=== PATIENT | female | born 1960 | race American Indian/Alaskan Native ===

== ENCOUNTER 2016-12-30 16:21 | Inpatient (IN) | payer OTHER ==
[2016-12-30] MEDS ORDERED: Sodium Chloride 0.9% 1,000 ML IV ONE ×3 (16:42→21:26)
[2016-12-30] MEDS ORDERED: Piperacillin/Tazobact 3.375 gm 100 ML IV STA (16:44)
[2016-12-30 16:59] LABS: BASO # 0.1 K/uL (0.0-0.2); BASO % 0.5 % (0.0-2.0); EOS % 0.1 % (0.0-4.0); HEMATOCRIT 37.3 % (34.0-47.0); LYMPH # 0.9 K/uL (1.0-4.3); LYMPH % 5.7 % (20.0-40.0); MEAN CELL VOLUME 74.5 fL (81.0-99.0); MEAN CORPUSCULAR HEMOGLOBIN 23.1 pg (27.0-31.0); MEAN CORPUSCULAR HGB CONC 31.1 g/dL (33.0-37.0); MEAN PLATELET VOLUME 8.6 fL (7.2-11.7); MONO # 0.7 K/uL (0.0-0.8); MONO % 4.5 % (0.0-10.0); NRBC % 0.7 % (0.0-2.0); PLATELET COUNT 338 K/uL (130-400); RED CELL DISTRIBUTION WIDTH 21.4 % (11.5-14.5); WHITE BLOOD COUNT 16.1 K/uL (4.8-10.8)
[2016-12-30 17:03] LABS: VENOUS BLOOD GAS BASE EXCESS -5.8 mmol/L (0.0-2.0); VENOUS BLOOD GAS PCO2 37 mmHg (40-60); VENOUS BLOOD PH 7.33 (7.32-7.43)
[2016-12-30 17:13] LABS: ALB/GLOB RATIO 0.9 (1.0-2.1); BILIRUBIN,TOTAL 2.9 mg/dL (0.2-1.3); TOTAL PROTEIN 6.2 g/dL (6.3-8.3)
[2016-12-30 17:14] LABS: CALCIUM 7.8 mg/dl (8.6-10.4)
[2016-12-30 17:26] LABS: TROPONIN I 0.086 ng/mL (0.00-0.120)
[2016-12-30] MEDS ORDERED: Piperacillin/Tazobact 3.375 gm 100 ML IVPB ONE (17:27)
[2016-12-30] MEDS ORDERED: Calcium Gluconate 4.65 MEQ in Dextrose 5% In Water 100 ML IV STA (17:33)
[2016-12-30] MEDS ORDERED: Sod Polystyrene Sulf 15 gm/60 ml Oral Susp PO ONE (17:33)
--- NOTE | 2016-12-30 17:33 | CP.PCM.CON ---
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 Patrick Patient is a 56 year old female, with PMHx of , who presents to ED with. PMHx PSHx SHx FHx: Allergies: Past Patient History - Past Social History Smoking Status: Unknown If Ever Smoked - CARDIAC Hx Angina: Yes Hx Hypertension: Yes - PULMONARY Hx Chronic Obstructive Pulmonary Disease (COPD): Yes Hx Sleep Apnea: Yes - NEUROLOGICAL Hx Parkinson's Disease: Yes - HEENT Hx Glaucoma: Yes - ENDOCRINE/METABOLIC Hx Diabetes Mellitus Type 2: Yes - PSYCHIATRIC Hx Anxiety: Yes Hx Substance Use: No - SURGICAL HISTORY Hx Coronary Artery Bypass Graft: Yes Meds Allergies/Adverse Reactions: Allergies Allergy/AdvReac Type Severity Reaction Status Date / Time Sulfa (Sulfonamide Allergy Verified 12/30/16 16:38 Antibiotics) - Medications Medications: Current Medications Sodium Chloride (Sodium Chloride 0.9%) 1,000 mls @ 1,000 mls/hr IV .Q1H ONE Stop: 12/30/16 17:41 Last Admin: 12/30/16 16:30 Dose: 1,000 mls/hr Vancomycin HCl (Vancomycin 1gm In Normal Saline Addvantage) 250 mls @ 166.667 mls/hr IV STAT GLADIS Norepinephrine Bitartrate 4 mg (/ Sodium Chloride) 254 mls @ 19.05 mls/hr IV .[id number] PRN; Protocol; 5 MCG/MIN PRN Reason: TITRATE PER MD ORDER Last Admin: 12/30/16 17:06 Dose: 19.05 mls/hr Fentanyl Citrate 2,500 mcg/ (Sodium Chloride) 250 mls @ 113.39 mls/hr IV .Q2H13M GLADIS; 10 MCG/KG/HR PRN Reason: Protocol Results - Vital Signs Recent Vital Signs: Last Vital Signs Temp 97.4 F L 12/30/16 17:01 Pulse 63 12/30/16 16:46 Resp 22 12/30/16 16:46 BP 69/43 L 12/30/16 16:46 Pulse Ox 100 12/30/16 16:46 - Labs Result Diagrams: 12/30/16 16:56 12/30/16 16:56 Assessment & Plan - Assessment and Plan (Free Text) Plan: Neuro: Pt intubated Endo: CV: Hyperkalemia: 5.7 on admission - Calcium Gluconate IV, D50 one amp, IV insulin given in ED - Kayexalate given once Hypotension - NS 1 Liter Bolus - NE 5 mcg/min titration BNP: 98660 Pulm: ABG: pH:7.33 , PO2: 67 , PCO2: 37 , HCO3: 20 PCXR (12/30/16): GI: Tbili 2.9 Elevated AST: 94 - ALT/Alk phos WNL /Renal: Urine output: BUN/CR: 98/ Monitor Hem/Onc: Microcytic Anemia - MCV 74.5 ID: CODE SEPSIS Criteria: WBC 16.1, Tachypneic (28) - left shift - Lactate 9 - Zosyn 3.375 gm IV, Vancomycin 1gm IV once in ED Prophylaxis: DVT: VTE: GI:
[2016-12-30] MEDS ORDERED: (Novolin R) Insulin Human Regular 100 units/ml vial IV STA (17:34)
[2016-12-30] MEDS ORDERED: Dextrose 50% SYRINGE Inj (50 ml) IV STA (17:34)
[2016-12-30] MEDS ORDERED: Sod Polystyrene Sulf 15 gm/60 ml Oral Susp ONE (17:43)
[2016-12-30] MEDS ORDERED: Dextrose 50% SYRINGE Inj (50 ml) ONE (17:44)
[2016-12-30] MEDS ORDERED: Sodium Bicarbonate (8.4%) 50 Meq Syringe ONE ×3 (17:44→20:11)
[2016-12-30] MEDS ORDERED: (Novolin R) Insulin Human Regular 100 units/ml vial ONE (17:44)
[2016-12-30] MEDS ORDERED: Calcium Gluconate 4.65 mEq/10 ml Inj ONE (17:44)
[2016-12-30 18:39] LABS: NEUTROPHIL 88 % (50-75); NUCLEATED RED BLOOD CELL 1 % (0-0); REACTIVE LYMPHOCYTES 1 % (0-0); TOTAL CELLS COUNTED 100
[2016-12-30 18:40] LABS: LARGE PLATELETS PRESENT; SMUDGE CELLS PRESENT
[2016-12-30] MEDS ORDERED: Etomidate 20 mg/10ml Inj IV ONE ×2 (18:52→19:40)
[2016-12-30] MEDS ORDERED: Succinylcholine Chloride 20 mg/ml Syr (5 ml) IV STA (19:06)
--- NOTE | 2016-12-30 19:14 | C.PDOC ---
History Of Present Illness Patient is a 56 year old female brought in from her longterm via EMS after being found to have a decreased mental status and hypoglycemia. Patient was treated with glucagon without improvement, D50 given with improvement to hypoglycemia but no improvement to mental status. No other problems seen at this moment. Time Seen by Provider: 12/30/16 16:41 Chief Complaint (Nursing): Altered Mental Status History Per: EMS, Other ([facility]) History/Exam Limitations: Clinical Condition Onset/Duration Of Symptoms: Hrs Onset Of Symptoms: Cannot Confirm Onset Current Symptoms Are (Timing): Still Present Usual Baseline: Unknown Additional History Per: EMS, [facility] Past Medical History Reviewed: Historical Data, Nursing Documentation, Vital Signs Vital Signs: Last Vital Signs Temp 97.4 F L 12/30/16 17:01 Pulse 65 12/30/16 22:25 Resp 16 12/30/16 22:25 BP 96/61 L 12/30/16 22:25 Pulse Ox 100 12/30/16 22:25 - Medical History PMH: Anxiety, COPD, Deep Vein Thrombosis, HTN, Hyperlipidemia, Parkinson's Disease, Sleep Apnea Surgical History: CABG - [facility] Procedures CONTRAST AORTOGRAM (12/26/11) CONTRAST ARTERIOGRAM-LEG (12/26/11) Family History: States: Unknown Family Hx - Social History Hx Alcohol Use: No Hx Substance Use: No Review Of Systems Review Of Systems: ROS cannot be obtained secondary to pt's inabilty to answer questions. (Altered mental status) Physical Exam - Physical Exam Appears: Non-toxic, Other (Lethargic) Skin: Normal Color, Warm, Dry Head: Atraumatic, Normacephalic Eye(s): bilateral: Other (Reactive) Oral Mucosa: Moist Chest: Other (Large midsternotomy scar) Cardiovascular: Rhythm Regular, JVD Respiratory: Rales (Bilateral) Gastrointestinal/Abdominal: Soft, Other (Globus abdomen) Rectal: Other (Left gluteal wound) Extremity: Pedal Edema (Bilateral), Other (Bilateral non-healing wound) Neurological/Psych: Other (Aroused by pain) Additional Physical Exam Comments: Wound vac in place ED Course And Treatment - Laboratory Results Result Diagrams: 12/30/16 16:56 12/30/16 19:44 Interpretation Of ECG: Flattened t waves laterally, inverted at v1/v2. Widen QRS. O2 Sat by Pulse Oximetry: 100 (Room air) Pulse Ox Interpretation: Normal - Radiology CXR: Interpreted by Me, Viewed By Me CXR Interpretation: Yes: Cardiomegaly, Other (CHF) Progress Note: Lactate at 9. Potassium at 7.0. Discussed with Dr. Brannon at 16: 45, says could be septic from leg wound. Spoke to daughter to clarify gravity of situation. Discussed with Dr. Patrick at 17:00 to make aware of patient, spoke to him again at 18:00, came down to ER at that time. Failed attempt at right groin triple lumen catheter insertion due to large blackened venous back flow, abandoned on 2nd attempt. Intubated with 22 cm glide scope, good bilateral breath sounds. OG tube placed by myself, good return. 18 gauge left external jugular vein angiocatheter placed. Code septic called. Zosyn administered for sepsis. Gentle sedation with fentanyl drip to avoid hypotension. Aggressive fluids administered as per code, sepsis protocols. Critical Care Time - Critical Care Note Total Time (in mins): 90 Documented critical care: time excludes all time spent performing seperately billable procedures. Medical Decision Making Medical Decision Making: sepsis prob due to b/l chronic leg wounds, acute renal failure, hyperkalemia with EKG changes of flattened T^ and bradycardia, Disposition Doctor Will See Patient In The: Hospital Counseled Patient/Family Regarding: Studies Performed, Diagnosis - Disposition Disposition: HOSPITALIZED Disposition Time: 18:30 Condition: CRITICAL - Clinical Impression Clinical Impression: Sepsis, Acute kidney insufficiency, Congestive heart failure (CHF), Hyperkalemia - Scribe Statement The provider has reviewed the documentation as recorded by the [facility] All medical record entries made by the Kellyibhalima were at my direction and personally dictated by me. I have reviewed the chart and agree that the record accurately reflects my personal performance of the history, physical exam, medical decision making, and the department course for this patient. I have also personally directed, reviewed, and agree with the discharge instructions and disposition.
[2016-12-30] MEDS ORDERED: Succinylcholine Chloride 20 mg/ml Syr (5 ml) IV ONE (19:40)
[2016-12-30] MEDS ORDERED: Sodium Bicarbonate (8.4%) 50 Meq Syringe IVP ONE (19:47)
--- NOTE | 2016-12-30 19:59 | RAD ---
PROCEDURE: CHEST RADIOGRAPH, 1 VIEW HISTORY: Shortness of breath COMPARISON: None available. FINDINGS: LUNGS: Moderate to severe venous congestion with prominent consolidative changes in the mid to lower lung zones bilaterally most prominent at the left lung base. Small left pleural effusion. PLEURA: As above. CARDIOVASCULAR: Cardiomegaly. Status post median sternotomy and CABG. OSSEOUS STRUCTURES: Degenerative changes in the spine and shoulders. VISUALIZED UPPER ABDOMEN: Normal. OTHER FINDINGS: None. IMPRESSION: Moderate to severe venous congestion with prominent consolidative changes in the mid to lower lung zones bilaterally most prominent at the left lung base. Small left pleural effusion.
--- NOTE | 2016-12-30 20:19 | RAD ---
PROCEDURE: CHEST RADIOGRAPH, 1 VIEW HISTORY: s/p intubation COMPARISON: 12/30/2016 FINDINGS: LUNGS: Endotracheal tube extending into the mid thoracic trachea. NG tube extending into the stomach. Moderate to severe venous congestion. Additional linear consolidative markings in the mid to lower lung zones bilaterally. More consolidative opacity at the left lung base with small left pleural effusion. PLEURA: As above. CARDIOVASCULAR: Status post median sternotomy and CABG. Prior valve replacement. Lobulated calcific density at the lateral aspect of the left lower lung zone. OSSEOUS STRUCTURES: No significant abnormalities. VISUALIZED UPPER ABDOMEN: Normal. OTHER FINDINGS: None. IMPRESSION: Endotracheal tube extending into the mid thoracic trachea. NG tube extending into the stomach. Moderate to severe venous congestion. Additional linear consolidative markings in the mid to lower lung zones bilaterally. More consolidative opacity at the left lung base with small left pleural effusion. Status post median sternotomy and CABG. Prior valve replacement. Lobulated calcific density at the lateral aspect of the left lower lung zone.
[2016-12-30 21:15] LABS: ABG MECHANICAL RATE 14; ATERIAL BLOOD GAS PEEP 5; DRAW SITE RRA
[2016-12-30 21:28] LABS: POTASSIUM 4.6 mmol/L (3.6-5.2)
[2016-12-30 21:32] LABS: CALCIUM 7.2 mg/dl (8.6-10.4); MAGNESIUM 2.9 mg/dL (1.6-2.3); PHOSPHOROUS 8.6 mg/dL (2.5-4.5)
[2016-12-30] MEDS ORDERED: Vancomycin 750mg/D5W 150 ml 150 ML IV ONE (21:45)
[2016-12-30 21:54] LABS: INR 2.3
[2016-12-30 22:04] LABS: DRAW SITE VENOUS; VENOUS BLOOD GAS BASE EXCESS 3.9 mmol/L (0.0-2.0); VENOUS BLOOD GAS PCO2 42 mmHg (40-60); VENOUS BLOOD PH 7.44 (7.32-7.43)
[2016-12-30] MEDS ORDERED: Sodium Chloride 0.9% 1,000 ML IV SCH (22:15)
--- NOTE | 2016-12-30 22:20 | CP.PCM.CON ---
History of Present Illness - History of Present Illness History of Present Illness: History obtained from the family, but the story is very limited. This patient underwent CABAG at [facility] on 08/2017, graft vessels where obtained from both lower medial anterior extremities. As per the family after the sutures where removed the wound opened up since she was very swollen, but got debridement of both sites on 09/2016. I saw pictures that the family carries in their celphone and the wounds have been progressively worst, now the tendon and muscle are visible. She has wound vac dressing, but not connected to the machine as per family the dressings have been connected to the wound vac at the [place]. She has been getting swollen for the past 2 weeks and was placed on a lasix drip since the kidneys where hypoperfused. As per ER the patient was "hypoglycemic, bradycardic in the 50's, SBP 60'S and intubated since she was stuporous, ". Did not desaturated. Was started on pressors. I do not have previous laboratory exams. Initial labs show renal failure with K 6, HCO3 17, increased anion gap, low Na, low Cl, she has anasarca. Unable to auscultate heart of lungs due to body habitus. Minimal response, but does require some sedation. When kinney inserted only 10 mL of UO came out. sites of non functionin IV removed are oozing secondary to platelet disfunction due to renal failure, given DDAVP. Placed left IJ line under aseptic conditions and with aid of US with out any complications, tip placement confirmed by x-ray. PMH: CABAG 08/2016 MARKUS HTN COPD Parkinson's disease Allergic to sulfas FH: Not relevant for the case social: ros unable pe: bp 89/55 mmhg, hr 64, rr 21, O2 99% on RA, afebrile patient intubated and sedte obtunded, but able to move a little with stimuli unable to auscultate heart or lungs abdomen global, soft, unable to do deep palpation anasarca did not take the wound vac dressings since a/p: Septic shock: Pressors decreasing, bolusing 2 L of fluids, maintenance fluids. meropenem 500 mg X1 (adjusted for renal function), next dose daily and 1,750 mg of vancomycin, next dose in [address] 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 Call surgery in am to follow on wound vac and evaluate any need for further surgical intervention. Renal failure: unable to get urine sample, give fluids and see if we can obtain any output, so far acidosis and hyperkalemia controlled. Will call Dr. Paredes, does note need dialysis immediately, but very possible that will need. respiratory failure: x-ray looks very congested Updated family Past Patient History - Past Social History Smoking Status: Unknown If Ever Smoked - CARDIAC Hx Hypertension: Yes - PULMONARY Hx Chronic Obstructive Pulmonary Disease (COPD): Yes Hx Sleep Apnea: Yes - NEUROLOGICAL Hx Parkinson's Disease: Yes - HEENT Hx Glaucoma: Yes - ENDOCRINE/METABOLIC Hx Diabetes Mellitus Type 2: Yes - PSYCHIATRIC Hx Anxiety: Yes Hx Substance Use: No - SURGICAL HISTORY Hx Coronary Artery Bypass Graft: Yes Meds Allergies/Adverse Reactions: Allergies Allergy/AdvReac Type Severity Reaction Status Date / Time Sulfa (Sulfonamide Allergy Verified 12/30/16 16:38 Antibiotics) - Medications Medications: Current Medications Norepinephrine Bitartrate 4 mg (/ Sodium Chloride) 254 mls @ 19.05 mls/hr IV .[id number] PRN; Protocol; 5 MCG/MIN PRN Reason: TITRATE PER MD ORDER Last Admin: 12/30/16 18:25 Dose: 76.2 mls/hr Fentanyl Citrate 2,500 mcg/ (Sodium Chloride) 250 mls @ 113.39 mls/hr IV .Q2H13M GLADIS; 10 MCG/KG/HR PRN Reason: Protocol Last Admin: 12/30/16 18:06 Dose: 113.39 mls/hr Sodium Bicarbonate 150 meq/ (Dextrose) 1,000 mls @ 100 mls/hr IV .Q10H GLADIS Sodium Chloride (Sodium Chloride 0.9%) 1,000 mls @ 1,000 mls/hr IV .Q1H ONE Stop: 12/30/16 22:25 Sodium Chloride (Sodium Chloride 0.9%) 1,000 mls @ 1,000 mls/hr IV .Q1H ONE Stop: 12/30/16 22:25 Vancomycin HCl 1,750 mg/ (Sodium Chloride) 250 mls @ 166.6 mls/hr IVPB Q72H GLADIS Vancomycin HCl (Vancocin 750mg/D5w 150 Ml) 150 mls @ 133 mls/hr IV ONCE ONE Stop: 12/30/16 22:52 Imipenem/Cilastatin Sodium 500 (mg/ Sodium Chloride) 100 mls @ 100 mls/hr IVPB ONCE ONE Stop: 12/30/16 22:32 Sodium Chloride (Sodium Chloride 0.9%) 1,000 mls @ 100 mls/hr IV .Q10H GLADIS Pantoprazole Sodium (Protonix Inj) 40 mg IVP DAILY GLADIS Results - Vital Signs Recent Vital Signs: Last Vital Signs Temp 97.4 F L 12/30/16 17:01 Pulse 64 12/30/16 18:50 Resp 20 12/30/16 18:50 BP 100/59 L 12/30/16 18:50 Pulse Ox 100 12/30/16 19:42 - Labs Result Diagrams: 12/30/16 16:56 12/30/16 19:44 Labs: Laboratory Results - last 24 hr 12/30/16 12/30/16 12/30/16 19:44 21:04 21:12 PT INR APTT Puncture Site Rra pCO2 30 L pO2 295 H HCO3 26.9 ABG pH 7.52 H ABG Total CO2 25.4 ABG O2 Saturation 100.4 H ABG Base Excess 2.4 Stan Test Na ABG Potassium 4.2 VBG pH VBG pCO2 VBG HCO3 VBG O2 Sat (Calc) VBG Base Excess A-a O2 Difference 381.0 Respiratory Index 1.3 Glucose 99 Lactate 5.0 H* Mechanical Rate 14 FiO2 100.0 Tidal Volume 500 PEEP 5 Crit Value Called To Mariangel carias Crit Value Called By Mandi Crit Value Read Back Y Blood Gas Notified Time 2114 Sodium 132 134.0 Potassium 4.6 Chloride 89 L 99.0 Carbon Dioxide 25 Anion Gap 23 H BUN 98 H Creatinine 7.4 H* Est GFR ( Amer) 7 Est GFR (Non-Af Amer) 6 Random Glucose 94 Lactic Acid 4.9 H* Calcium 7.2 L Phosphorus 8.6 H Magnesium 2.9 H Arterial Blood Potassium 4.2 Blood Type Antibody Screen 12/30/16 12/30/16 12/30/16 21:15 21:16 22:01 PT 27.1 H INR 2.3 APTT 41 H Puncture Site Venous pCO2 pO2 26 L HCO3 ABG pH ABG Total CO2 ABG O2 Saturation ABG Base Excess Stan Test Na ABG Potassium VBG pH 7.44 H VBG pCO2 42 VBG HCO3 26.7 VBG O2 Sat (Calc) 47.1 VBG Base Excess 3.9 H A-a O2 Difference Respiratory Index Glucose Lactate Mechanical Rate FiO2 Tidal Volume PEEP Crit Value Called To Crit Value Called By Crit Value Read Back Blood Gas Notified Time Sodium Potassium Chloride Carbon Dioxide Anion Gap BUN Creatinine Est GFR ( Amer) Est GFR (Non-Af Amer) Random Glucose Lactic Acid Calcium Phosphorus Magnesium Arterial Blood Potassium Blood Type O POSITIVE Antibody Screen Negative
[2016-12-31 01:32] LABS: POTASSIUM 4.6 mmol/L (3.6-5.2)
[2016-12-31 01:36] LABS: CALCIUM 6.9 mg/dl (8.6-10.4)
[2016-12-31] MEDS ORDERED: Albumin Human 25% (12.5 gm/50 ml) IV ONE ×2 (02:25→03:24)
[2016-12-31 02:50] LABS: CHLORIDE 92 mmol/L (98-107); POTASSIUM 4.7 mmol/L (3.6-5.2); SODIUM 135 mmol/L (132-148)
[2016-12-31 02:53] LABS: CARBON DIOXIDE 21 mmol/L (22-30)
[2016-12-31 02:54] LABS: BLOOD UREA NITROGEN 92 mg/dL (7-17); CALCIUM 7.3 mg/dl (8.6-10.4); GLUCOSE,RANDOM 72 mg/dL (65-105)
[2016-12-31 03:01] LABS: GFR AFRICAN-AMERICAN 7
[2016-12-31 05:45] LABS: ABG MECHANICAL RATE 14; ARTERIAL BLOOD HGB O2 SAT 95.8 % (95.0-98.0); ATERIAL BLOOD GAS PEEP 5; DRAW SITE RB; HHB 1.4 % (0.0-5.0); METHEMOGLOBIN 0.8 % (0.0-3.0)
[2016-12-31] MEDS ORDERED: Dextrose 50% SYRINGE Inj (50 ml) ONE ×2 (06:38→15:29)
[2016-12-31] MEDS ORDERED: Dextrose 50% SYRINGE Inj (50 ml) IV STA ×3 (06:42→15:29)
[2016-12-31 06:45] LABS: BASO # 0.1 K/uL (0.0-0.2); BASO % 0.3 % (0.0-2.0); EOS % 0.1 % (0.0-4.0); HEMATOCRIT 34.6 % (34.0-47.0); LYMPH # 2.4 K/uL (1.0-4.3); LYMPH % 11.5 % (20.0-40.0); MEAN CELL VOLUME 75.1 fL (81.0-99.0); MEAN CORPUSCULAR HEMOGLOBIN 23.5 pg (27.0-31.0); MEAN CORPUSCULAR HGB CONC 31.3 g/dL (33.0-37.0); MEAN PLATELET VOLUME 8.5 fL (7.2-11.7); MONO # 1.4 K/uL (0.0-0.8); MONO % 6.6 % (0.0-10.0); RED CELL DISTRIBUTION WIDTH 21.5 % (11.5-14.5); WHITE BLOOD COUNT 20.8 K/uL (4.8-10.8)
[2016-12-31 06:47] LABS: PHOSPHOROUS 8.6 mg/dL (2.5-4.5)
[2016-12-31 06:48] LABS: CALCIUM 7.5 mg/dl (8.6-10.4); MAGNESIUM 2.9 mg/dL (1.6-2.3)
--- NOTE | 2016-12-31 08:17 | PCM.SEPTIC ---
Sepsis Progress Note - Reassessment Type Date of Evaluation: 12/31/16 Time of Evaluation: 08:15 Reassessment Type: Invasive reassessment - Non Invasive Reassessment Were the most recent vital sign reviewed: Yes Vital Sign (Latest): Temp Pulse Resp BP Pulse Ox 96 F L 67 22 100/66 96 12/31/16 05:00 12/31/16 07:27 12/31/16 07:27 12/31/16 07:27 12/31/16 06:00 Cardiovascular: Yes: Bradycardia Respiratory: Yes: Decreased Breath Sounds Capillary Refill: Delayed Pulses: Normal Radial, Normal Dorsalis Pedis, Normal Posterior Tibialis Skin: Normal Color, Dry, Diaphoretic - Invasive Reassessment (complete 2 of 4) Was a Central Venous Pressure Measurement obtained within 6 Hours after the presentation of septic shock: No Was a central venous oxygen measurement obtained within 6 hours after the presentation of septic shock: No Was a bedside cardiovascular ultrasound performed within 6 hours after the presentation of septic shock: No Passive Leg Raise Result: Negative Fluid Challenge performed: Yes
[2016-12-31] MEDS ORDERED: Dextrose 5%/0.9% NS 1,000 ML IV SCH (08:30)
--- NOTE | 2016-12-31 08:47 | CP.PCM.CON ---
History of Present Illness - History of Present Illness History of Present Illness: VASCULAR SURGERY CONSULT NOTE FOR DR. ROSALES Pt intubated, unable to give history and no family available at bedside for questioning. HPI taken from family by Dr. Auguts. Pt S&E. "History obtained from the family, but the story is very limited. This patient underwent CABAG at [facility] on 08/2017, graft vessels where obtained from both lower medial anterior extremities. As per the family after the sutures where removed the wound opened up since she was very swollen, but got debridement of both sites on 09/2016. I saw pictures that the family carries in their cellphone and the wounds have been progressively worst, now the tendon and muscle are visible. She has wound vac dressing, but not connected to the machine as per family the dressings have been connected to the wound vac at the MD. She has been getting swollen for the past 2 weeks and was placed on a lasix drip since the kidneys where hypoperfused. As per ER the patient was "hypoglycemic, bradycardic in the 50's, SBP 60'S and intubated since she was stuporous, ". Did not desaturate Was started on pressors. Initial labs show renal failure with K 6, HCO3 17, increased anion gap, low Na, low Cl, she has anasarca. Unable to auscultate heart of lungs due to body habitus. Minimal response, but does require some sedation. When kinney inserted only 10 mL of UO came out. sites of non functionin IV removed are oozing secondary to platelet disfunction due to renal failure, given DDAVP." Pick Pulling Machine Operator placed left IJ line and pt currently maxed out on vasopressin and levophed with systolic BP in 80s. Pt went to HD last night but could only tolerate 45 min due to hypotension. Current vent settings: FIO2 40%, PEEP5, RR 14, tidal vol 500 PMH: HTN, MARKUS, COPD, Parkinson's disease PSH: CABG 08/2016 Allergies: sulfas FH:Not relevant for the case social: unable to obtain ros unable to obtain Review of Systems - Review of Systems Systems not reviewed;Unavailable: Intubated Review of Systems: unable to obtain do to intubation Past Patient History - Past Medical History & Family History Past Medical History?: Yes - Past Social History Smoking Status: Unknown If Ever Smoked - CARDIAC Hx Hypertension: Yes - PULMONARY Hx Chronic Obstructive Pulmonary Disease (COPD): Yes Hx Sleep Apnea: Yes - NEUROLOGICAL Hx Parkinson's Disease: Yes - HEENT Hx Glaucoma: Yes - RENAL Hx Chronic Kidney Disease: No - ENDOCRINE/METABOLIC Hx Diabetes Mellitus Type 2: Yes - HEMATOLOGICAL/ONCOLOGICAL Hx Blood Disorders: Yes Hx Blood Transfusions: Yes - INTEGUMENTARY Hx Dermatological Problems: No - MUSCULOSKELETAL/RHEUMATOLOGICAL Hx Musculoskeletal Disorders: No - GASTROINTESTINAL Hx Gastrointestinal Disorders: No - GENITOURINARY/GYNECOLOGICAL Hx Genitourinary Disorders: No - PSYCHIATRIC Hx Anxiety: Yes Hx Substance Use: No - SURGICAL HISTORY Hx Coronary Artery Bypass Graft: Yes - ANESTHESIA Hx Anesthesia: Yes Hx Anesthesia Reactions: No Hx Malignant Hyperthermia: No Has any member of the family had a problem w/ anesthesia?: No Meds Allergies/Adverse Reactions: Allergies Allergy/AdvReac Type Severity Reaction Status Date / Time Sulfa (Sulfonamide Allergy Verified 12/30/16 16:38 Antibiotics) - Medications Medications: Current Medications Norepinephrine Bitartrate 4 mg (/ Sodium Chloride) 254 mls @ 19.05 mls/hr IV .[id number] PRN; Protocol; 5 MCG/MIN PRN Reason: TITRATE PER MD ORDER Last Admin: 12/31/16 07:27 Dose: 76.2 mls/hr Fentanyl Citrate 2,500 mcg/ (Sodium Chloride) 250 mls @ 113.39 mls/hr IV .Q2H13M GLADIS; 10 MCG/KG/HR PRN Reason: Protocol Last Admin: 12/31/16 07:09 Dose: 22.8 mls/hr Sodium Bicarbonate 150 meq/ (Dextrose) 1,000 mls @ 100 mls/hr IV .Q10H GLADIS Vancomycin HCl 1,750 mg/ (Sodium Chloride) 250 mls @ 166.6 mls/hr IVPB Q72H GLADIS Vasopressin 40 units/ Sodium (Chloride) 40 mls @ 2.4 mls/hr IV .[id number] GLADIS PRN Reason: 0.04 UNITS/MIN Last Admin: 12/31/16 08:42 Dose: 2.4 mls/hr Dextrose/Sodium Chloride (Dextrose 5%/0.9% Ns 1000 Ml) 1,000 mls @ 100 mls/hr IV .Q10H GLADIS Last Admin: 12/31/16 08:33 Dose: 100 mls/hr Pantoprazole Sodium (Protonix Inj) 40 mg IVP DAILY GLADIS Physical Exam - Constitutional Appears: Toxic, Unkempt Additional comments: obese - Head Exam Head Exam: ATRAUMATIC, NORMOCEPHALIC - ENT Exam ENT Exam: Mucous Membranes Moist, Normal Exam - Respiratory Exam Respiratory Exam: absent: Respiratory Distress Additional comments: on ventilator - Cardiovascular Exam Cardiovascular Exam: REGULAR RHYTHM. absent: Bradycardia, Tachycardia, JVD - GI/Abdominal Exam GI & Abdominal Exam: Soft. absent: Distended - Extremities Exam Extremities exam: Positive for: pedal edema Additional comments: 2+ pitting edema, wound vacs on bilateral medial extremities, not connected to suction. Additional lesion on medial Left knee. no palpable or doppler-able DPs or PTs pulses - Neurological Exam Additional comments: pt intubated on fentanyl. nonresponsive to verbal stimulus - Psychiatric Exam Additional comments: pt intubated on fentanyl - Skin Skin Exam: Dry Additional comments: feet cold to touch bilaterally Results - Vital Signs Recent Vital Signs: Last Vital Signs Temp 96 F L 12/31/16 05:00 Pulse 64 12/31/16 08:42 Resp 22 12/31/16 08:42 BP 87/61 L 12/31/16 08:42 Pulse Ox 98 12/31/16 08:42 - Labs Result Diagrams: 12/31/16 06:35 12/31/16 04:00 Labs: Laboratory Results - last 24 hr 12/30/16 12/30/16 12/30/16 19:44 21:04 21:12 WBC RBC Hgb Hct MCV MCH MCHC RDW Plt Count MPV Neut % (Auto) Lymph % (Auto) [place] % (Auto) Eos % (Auto) Baso % (Auto) Neut # Lymph # [place] # Eos # Baso # PT INR APTT Puncture Site Rra pCO2 30 L pO2 295 H HCO3 26.9 ABG pH 7.52 H ABG Total CO2 25.4 ABG O2 Saturation 100.4 H ABG Base Excess 2.4 ABG Hemoglobin ABG Carboxyhemoglobin POC ABG HHb (Measured) ABG Methemoglobin Stan Test Na ABG Potassium 4.2 VBG pH VBG pCO2 VBG HCO3 VBG O2 Sat (Calc) VBG Base Excess A-a O2 Difference 381.0 Respiratory Index 1.3 Hgb O2 Saturation Glucose 99 Lactate 5.0 H* Mechanical Rate 14 FiO2 100.0 Tidal Volume 500 PEEP 5 Crit Value Called To Mariangel carias Crit Value Called By Mandi Crit Value Read Back Y Blood Gas Notified Time 2114 Sodium 132 134.0 Potassium 4.6 Chloride 89 L 99.0 Carbon Dioxide 25 Anion Gap 23 H BUN 98 H Creatinine 7.4 H* Est GFR ( Amer) 7 Est GFR (Non-Af Amer) 6 POC Glucose (mg/dL) Random Glucose 94 Serum Osmolality Lactic Acid 4.9 H* Calcium 7.2 L Phosphorus 8.6 H Magnesium 2.9 H Arterial Blood Potassium 4.2 Hep Bs Antigen Hep Bs Antibody Hep B Core IgM Ab Hepatitis C Antibody Blood Type Antibody Screen 12/30/16 12/30/16 12/30/16 21:15 21:16 22:01 WBC RBC Hgb Hct MCV MCH MCHC RDW Plt Count MPV Neut % (Auto) Lymph % (Auto) [place] % (Auto) Eos % (Auto) Baso % (Auto) Neut # Lymph # [place] # Eos # Baso # PT 27.1 H INR 2.3 APTT 41 H Puncture Site Venous pCO2 pO2 26 L HCO3 ABG pH ABG Total CO2 ABG O2 Saturation ABG Base Excess ABG Hemoglobin ABG Carboxyhemoglobin POC ABG HHb (Measured) ABG Methemoglobin Stan Test Na ABG Potassium VBG pH 7.44 H VBG pCO2 42 VBG HCO3 26.7 VBG O2 Sat (Calc) 47.1 VBG Base Excess 3.9 H A-a O2 Difference Respiratory Index Hgb O2 Saturation Glucose Lactate Mechanical Rate FiO2 Tidal Volume PEEP Crit Value Called To Crit Value Called By Crit Value Read Back Blood Gas Notified Time Sodium Potassium Chloride Carbon Dioxide Anion Gap BUN Creatinine Est GFR ( Amer) Est GFR (Non-Af Amer) POC Glucose (mg/dL) Random Glucose Serum Osmolality Lactic Acid Calcium Phosphorus Magnesium Arterial Blood Potassium Hep Bs Antigen Hep Bs Antibody Hep B Core IgM Ab Hepatitis C Antibody Blood Type O POSITIVE Antibody Screen Negative 12/30/16 12/30/16 12/31/16 22:32 23:49 01:17 WBC RBC Hgb Hct MCV MCH MCHC RDW Plt Count MPV Neut % (Auto) Lymph % (Auto) [place] % (Auto) Eos % (Auto) Baso % (Auto) Neut # Lymph # [place] # Eos # Baso # PT INR APTT Puncture Site pCO2 pO2 HCO3 ABG pH ABG Total CO2 ABG O2 Saturation ABG Base Excess ABG Hemoglobin ABG Carboxyhemoglobin POC ABG HHb (Measured) ABG Methemoglobin Stan Test ABG Potassium VBG pH VBG pCO2 VBG HCO3 VBG O2 Sat (Calc) VBG Base Excess A-a O2 Difference Respiratory Index Hgb O2 Saturation Glucose Lactate Mechanical Rate FiO2 Tidal Volume PEEP Crit Value Called To Crit Value Called By Crit Value Read Back Blood Gas Notified Time Sodium 132 Potassium 4.6 Chloride 91 L Carbon Dioxide 22 Anion Gap 24 H BUN 92 H Creatinine 6.9 H Est GFR ( Amer) 7 Est GFR (Non-Af Amer) 6 POC Glucose (mg/dL) 126 H 111 H Random Glucose 81 Serum Osmolality Lactic Acid Calcium 6.9 L Phosphorus Magnesium Arterial Blood Potassium Hep Bs Antigen Hep Bs Antibody Hep B Core IgM Ab Hepatitis C Antibody Blood Type Antibody Screen 12/31/16 12/31/16 12/31/16 02:36 04:00 05:07 WBC RBC Hgb Hct MCV MCH MCHC RDW Plt Count MPV Neut % (Auto) Lymph % (Auto) [place] % (Auto) Eos % (Auto) Baso % (Auto) Neut # Lymph # [place] # Eos # Baso # PT INR APTT Puncture Site Rb pCO2 23 L pO2 95 HCO3 17.9 L ABG pH 7.40 ABG Total CO2 14.9 L ABG O2 Saturation 98.6 H ABG Base Excess -9.0 L ABG Hemoglobin 11.0 L ABG Carboxyhemoglobin 2.0 H POC ABG HHb (Measured) 1.4 ABG Methemoglobin 0.8 Stan Test Na ABG Potassium VBG pH VBG pCO2 VBG HCO3 VBG O2 Sat (Calc) VBG Base Excess A-a O2 Difference 161.0 Respiratory Index 1.7 Hgb O2 Saturation 95.8 Glucose Lactate Mechanical Rate 14 FiO2 40.0 Tidal Volume 500 PEEP 5 Crit Value Called To Crit Value Called By Crit Value Read Back Blood Gas Notified Time Sodium 135 135 Potassium 4.7 5.0 Chloride 92 L 92 L Carbon Dioxide 21 L 17 L Anion Gap 27 H 30 H BUN 92 H 79 H Creatinine 7.2 H 7.2 H Est GFR ( Amer) 7 7 Est GFR (Non-Af Amer) 6 6 POC Glucose (mg/dL) Random Glucose 72 26 L* D Serum Osmolality 312 H Lactic Acid Calcium 7.3 L 7.5 L Phosphorus 8.6 H Magnesium 2.9 H Arterial Blood Potassium Hep Bs Antigen Negative Hep Bs Antibody Negative Hep B Core IgM Ab Negative Hepatitis C Antibody Reactive H Blood Type Antibody Screen 12/31/16 12/31/16 12/31/16 06:35 06:42 07:12 WBC 20.8 H RBC 4.61 Hgb 10.8 L Hct 34.6 MCV 75.1 L MCH 23.5 L MCHC 31.3 L RDW 21.5 H Plt Count 277 MPV 8.5 Neut % (Auto) 81.5 H Lymph % (Auto) 11.5 L [place] % (Auto) 6.6 Eos % (Auto) 0.1 Baso % (Auto) 0.3 Neut # 16.9 H Lymph # 2.4 [place] # 1.4 H Eos # 0.0 Baso # 0.1 PT INR APTT Puncture Site pCO2 pO2 HCO3 ABG pH ABG Total CO2 ABG O2 Saturation ABG Base Excess ABG Hemoglobin ABG Carboxyhemoglobin POC ABG HHb (Measured) ABG Methemoglobin Stan Test ABG Potassium VBG pH VBG pCO2 VBG HCO3 VBG O2 Sat (Calc) VBG Base Excess A-a O2 Difference Respiratory Index Hgb O2 Saturation Glucose Lactate Mechanical Rate FiO2 Tidal Volume PEEP Crit Value Called To Crit Value Called By Crit Value Read Back Blood Gas Notified Time Sodium Potassium Chloride Carbon Dioxide Anion Gap BUN Creatinine Est GFR ( Amer) Est GFR (Non-Af Amer) POC Glucose (mg/dL) 22 L* 214 H 96 Random Glucose Serum Osmolality Lactic Acid Calcium Phosphorus Magnesium Arterial Blood Potassium Hep Bs Antigen Hep Bs Antibody Hep B Core IgM Ab Hepatitis C Antibody Blood Type Antibody Screen Assessment & Plan - Assessment and Plan (Free Text) Assessment: Assessment: 56F w/ PMH of HTN, MARKUS, PD, COPD s/p CABG with b/l lower extremity wounds with wound vac in place and non-dopplerable pulses Plan: - medical management per ICU team - Dr. Rosales will see this AM Jenna Betts PGY-2
--- NOTE | 2016-12-31 09:16 | RAD ---
HISTORY: line placement COMPARISON: 12/30/2016 FINDINGS: LUNGS: Endotracheal tube extending into the mid thoracic trachea. NG tube extending into the stomach. Left central venous catheter extending to the confluence of the right brachiocephalic and SVC junction. Moderate venous congestion. Prominent linear consolidative changes in the right midlung zone. Left basilar airspace opacity with small left pleural effusion. PLEURA: As above. CARDIOVASCULAR: Cardiomegaly. Status post median sternotomy and CABG. Valve replacement. OSSEOUS STRUCTURES: Degenerative changes in the spine and shoulders. VISUALIZED UPPER ABDOMEN: Normal. OTHER FINDINGS: None. IMPRESSION: Endotracheal tube extending into the mid thoracic trachea. NG tube extending into the stomach. Left central venous catheter extending to the confluence of the right brachiocephalic and SVC junction. Moderate venous congestion. Prominent linear consolidative changes in the right midlung zone. Left basilar airspace opacity with small left pleural effusion.
--- NOTE | 2016-12-31 09:19 | RAD ---
HISTORY: right ij hd cath insertion COMPARISON: 12/30/2016 FINDINGS: LUNGS: Interval insertion of a right jugular catheter tip extending to the cavoatrial junction. Other lines and tubes stable position. Persistent prominent linear consolidative changes in the right mid lung zone. Moderate venous congestion. Prominent left basilar airspace opacity with small to moderate left pleural effusion. Radiopaque density at the lateral aspect of the left midlung zone may represent surgical clip. PLEURA: As above. CARDIOVASCULAR: Cardiomegaly. Status post median sternotomy and CABG. Prior valve replacement. OSSEOUS STRUCTURES: No significant abnormalities. VISUALIZED UPPER ABDOMEN: Normal. OTHER FINDINGS: None. IMPRESSION: Interval insertion of a right jugular catheter tip extending to the cavoatrial junction. Other lines and tubes stable position. Persistent prominent linear consolidative changes in the right mid lung zone. Moderate venous congestion. Prominent left basilar airspace opacity with small to moderate left pleural effusion. Radiopaque density at the lateral aspect of the left midlung zone may represent surgical clip.
--- NOTE | 2016-12-31 10:55 | CP.PCM.CON ---
History of Present Illness - History of Present Illness History of Present Illness: History obtained from the family, but the story is very limited. This patient underwent CABAG at [facility] on 08/2017, graft vessels where obtained from both lower medial anterior extremities. As per the family after the sutures where removed the wound opened up since she was very swollen, but got debridement of both sites on 09/2016. I saw pictures that the family carries in their celphone and the wounds have been progressively worst, now the tendon and muscle are visible. She has wound vac dressing, but not connected to the machine as per family the dressings have been connected to the wound vac at the NM. She has been getting swollen for the past 2 weeks and was placed on a lasix drip since the kidneys where hypoperfused. As per ER the patient was "hypoglycemic, bradycardic in the 50's, SBP 60'S and intubated since she was stuporous, ". Did not desaturated. Was started on pressors. I do not have previous laboratory exams. Initial labs show renal failure with K 6, HCO3 17, increased anion gap, low Na, low Cl, she has anasarca. Unable to auscultate heart of lungs due to body habitus. Minimal response, but does require some sedation. When kinney inserted only 10 mL of UO came out. sites of non functionin IV removed are oozing secondary to platelet disfunction due to renal failure, given DDAVP. Placed left IJ line under aseptic conditions and with aid of US with out any complications, tip placement confirmed by x-ray. PMH: CABAG 08/2016 MARKUS HTN COPD Parkinson's disease PMH: HEP C+ COPD/MARKUS HTN PARKINSONS Presents to ER with code sepsis; given 2L fluids Due to pulmonary edema dialysis was attempted but was aborted due to hypotension Will try to arrange for slow dialysis -ie SLED to maintain hemodynamic stability. CONSULT DICTATED Past Patient History - Past Medical History & Family History Past Medical History?: Yes - Past Social History Smoking Status: Unknown If Ever Smoked - CARDIAC Hx Hypertension: Yes - PULMONARY Hx Chronic Obstructive Pulmonary Disease (COPD): Yes Hx Sleep Apnea: Yes - NEUROLOGICAL Hx Parkinson's Disease: Yes - HEENT Hx Glaucoma: Yes - RENAL Hx Chronic Kidney Disease: No - ENDOCRINE/METABOLIC Hx Diabetes Mellitus Type 2: Yes - HEMATOLOGICAL/ONCOLOGICAL Hx Blood Disorders: Yes Hx Blood Transfusions: Yes - INTEGUMENTARY Hx Dermatological Problems: No - MUSCULOSKELETAL/RHEUMATOLOGICAL Hx Musculoskeletal Disorders: No - GASTROINTESTINAL Hx Gastrointestinal Disorders: No - GENITOURINARY/GYNECOLOGICAL Hx Genitourinary Disorders: No - PSYCHIATRIC Hx Anxiety: Yes Hx Substance Use: No - SURGICAL HISTORY Hx Coronary Artery Bypass Graft: Yes - ANESTHESIA Hx Anesthesia: Yes Hx Anesthesia Reactions: No Hx Malignant Hyperthermia: No Has any member of the family had a problem w/ anesthesia?: No Meds Allergies/Adverse Reactions: Allergies Allergy/AdvReac Type Severity Reaction Status Date / Time Sulfa (Sulfonamide Allergy Verified 12/30/16 16:38 Antibiotics) - Medications Medications: Current Medications Sodium Bicarbonate 150 meq/ (Dextrose) 1,000 mls @ 100 mls/hr IV .Q10H GLADIS Vancomycin HCl 1,750 mg/ (Sodium Chloride) 250 mls @ 166.6 mls/hr IVPB Q72H GLADIS Vasopressin 40 units/ Sodium (Chloride) 40 mls @ 2.4 mls/hr IV .[id number] GLADIS PRN Reason: 0.04 UNITS/MIN Last Admin: 12/31/16 08:42 Dose: 2.4 mls/hr Dextrose/Sodium Chloride (Dextrose 5%/0.9% Ns 1000 Ml) 1,000 mls @ 100 mls/hr IV .Q10H GLADIS Last Admin: 12/31/16 08:33 Dose: 100 mls/hr Fentanyl Citrate 2,500 mcg/ (Sodium Chloride) 250 mls @ 113.39 mls/hr IV .Q2H13M PRN; Protocol; 10 MCG/KG/HR PRN Reason: FOLLOW TITRATION PROTOCOL Norepinephrine Bitartrate 16 (mg/ Sodium Chloride) 516 mls @ 9.67 mls/hr IV .Q24H PRN; Protocol; 5 MCG/MIN PRN Reason: TITRATE PER MD ORDER Pantoprazole Sodium (Protonix Inj) 40 mg IVP DAILY [facility] Results - Vital Signs Recent Vital Signs: Last Vital Signs Temp 97.9 F 12/31/16 08:00 Pulse 74 12/31/16 09:56 Resp 23 12/31/16 09:56 BP 142/80 12/31/16 09:51 Pulse Ox 91 L 12/31/16 09:56 - Labs Result Diagrams: 12/31/16 06:35 12/31/16 04:00 Labs: Laboratory Results - last 24 hr 12/30/16 12/30/16 12/30/16 19:44 21:04 21:12 WBC RBC Hgb Hct MCV MCH MCHC RDW Plt Count MPV Neut % (Auto) Lymph % (Auto) [place] % (Auto) Eos % (Auto) Baso % (Auto) Neut # Lymph # [place] # Eos # Baso # PT INR APTT Puncture Site Rra pCO2 30 L pO2 295 H HCO3 26.9 ABG pH 7.52 H ABG Total CO2 25.4 ABG O2 Saturation 100.4 H ABG Base Excess 2.4 ABG Hemoglobin ABG Carboxyhemoglobin POC ABG HHb (Measured) ABG Methemoglobin Stan Test Na ABG Potassium 4.2 VBG pH VBG pCO2 VBG HCO3 VBG O2 Sat (Calc) VBG Base Excess A-a O2 Difference 381.0 Respiratory Index 1.3 Hgb O2 Saturation Glucose 99 Lactate 5.0 H* Mechanical Rate 14 FiO2 100.0 Tidal Volume 500 PEEP 5 Crit Value Called To Mariangel carias Crit Value Called By Mandi Crit Value Read Back Y Blood Gas Notified Time 2114 Sodium 132 134.0 Potassium 4.6 Chloride 89 L 99.0 Carbon Dioxide 25 Anion Gap 23 H BUN 98 H Creatinine 7.4 H* Est GFR ( Amer) 7 Est GFR (Non-Af Amer) 6 POC Glucose (mg/dL) Random Glucose 94 Serum Osmolality Lactic Acid 4.9 H* Calcium 7.2 L Phosphorus 8.6 H Magnesium 2.9 H Arterial Blood Potassium 4.2 Hep Bs Antigen Hep Bs Antibody Hep B Core IgM Ab Hepatitis C Antibody Blood Type Antibody Screen 12/30/16 12/30/16 12/30/16 21:15 21:16 22:01 WBC RBC Hgb Hct MCV MCH MCHC RDW Plt Count MPV Neut % (Auto) Lymph % (Auto) [place] % (Auto) Eos % (Auto) Baso % (Auto) Neut # Lymph # [place] # Eos # Baso # PT 27.1 H INR 2.3 APTT 41 H Puncture Site Venous pCO2 pO2 26 L HCO3 ABG pH ABG Total CO2 ABG O2 Saturation ABG Base Excess ABG Hemoglobin ABG Carboxyhemoglobin POC ABG HHb (Measured) ABG Methemoglobin Stan Test Na ABG Potassium VBG pH 7.44 H VBG pCO2 42 VBG HCO3 26.7 VBG O2 Sat (Calc) 47.1 VBG Base Excess 3.9 H A-a O2 Difference Respiratory Index Hgb O2 Saturation Glucose Lactate Mechanical Rate FiO2 Tidal Volume PEEP Crit Value Called To Crit Value Called By Crit Value Read Back Blood Gas Notified Time Sodium Potassium Chloride Carbon Dioxide Anion Gap BUN Creatinine Est GFR ( Amer) Est GFR (Non-Af Amer) POC Glucose (mg/dL) Random Glucose Serum Osmolality Lactic Acid Calcium Phosphorus Magnesium Arterial Blood Potassium Hep Bs Antigen Hep Bs Antibody Hep B Core IgM Ab Hepatitis C Antibody Blood Type O POSITIVE Antibody Screen Negative 12/30/16 12/30/16 12/31/16 22:32 23:49 01:17 WBC RBC Hgb Hct MCV MCH MCHC RDW Plt Count MPV Neut % (Auto) Lymph % (Auto) [place] % (Auto) Eos % (Auto) Baso % (Auto) Neut # Lymph # [place] # Eos # Baso # PT INR APTT Puncture Site pCO2 pO2 HCO3 ABG pH ABG Total CO2 ABG O2 Saturation ABG Base Excess ABG Hemoglobin ABG Carboxyhemoglobin POC ABG HHb (Measured) ABG Methemoglobin Stan Test ABG Potassium VBG pH VBG pCO2 VBG HCO3 VBG O2 Sat (Calc) VBG Base Excess A-a O2 Difference Respiratory Index Hgb O2 Saturation Glucose Lactate Mechanical Rate FiO2 Tidal Volume PEEP Crit Value Called To Crit Value Called By Crit Value Read Back Blood Gas Notified Time Sodium 132 Potassium 4.6 Chloride 91 L Carbon Dioxide 22 Anion Gap 24 H BUN 92 H Creatinine 6.9 H Est GFR ( Amer) 7 Est GFR (Non-Af Amer) 6 POC Glucose (mg/dL) 126 H 111 H Random Glucose 81 Serum Osmolality Lactic Acid Calcium 6.9 L Phosphorus Magnesium Arterial Blood Potassium Hep Bs Antigen Hep Bs Antibody Hep B Core IgM Ab Hepatitis C Antibody Blood Type Antibody Screen 12/31/16 12/31/16 12/31/16 02:36 04:00 05:07 WBC RBC Hgb Hct MCV MCH MCHC RDW Plt Count MPV Neut % (Auto) Lymph % (Auto) [place] % (Auto) Eos % (Auto) Baso % (Auto) Neut # Lymph # [place] # Eos # Baso # PT INR APTT Puncture Site Rb pCO2 23 L pO2 95 HCO3 17.9 L ABG pH 7.40 ABG Total CO2 14.9 L ABG O2 Saturation 98.6 H ABG Base Excess -9.0 L ABG Hemoglobin 11.0 L ABG Carboxyhemoglobin 2.0 H POC ABG HHb (Measured) 1.4 ABG Methemoglobin 0.8 Stan Test Na ABG Potassium VBG pH VBG pCO2 VBG HCO3 VBG O2 Sat (Calc) VBG Base Excess A-a O2 Difference 161.0 Respiratory Index 1.7 Hgb O2 Saturation 95.8 Glucose Lactate Mechanical Rate 14 FiO2 40.0 Tidal Volume 500 PEEP 5 Crit Value Called To Crit Value Called By Crit Value Read Back Blood Gas Notified Time Sodium 135 135 Potassium 4.7 5.0 Chloride 92 L 92 L Carbon Dioxide 21 L 17 L Anion Gap 27 H 30 H BUN 92 H 79 H Creatinine 7.2 H 7.2 H Est GFR ( Amer) 7 7 Est GFR (Non-Af Amer) 6 6 POC Glucose (mg/dL) Random Glucose 72 26 L* D Serum Osmolality 312 H Lactic Acid Calcium 7.3 L 7.5 L Phosphorus 8.6 H Magnesium 2.9 H Arterial Blood Potassium Hep Bs Antigen Negative Hep Bs Antibody Negative Hep B Core IgM Ab Negative Hepatitis C Antibody Reactive H Blood Type Antibody Screen 12/31/16 12/31/16 12/31/16 06:35 06:42 07:12 WBC 20.8 H RBC 4.61 Hgb 10.8 L Hct 34.6 MCV 75.1 L MCH 23.5 L MCHC 31.3 L RDW 21.5 H Plt Count 277 MPV 8.5 Neut % (Auto) 81.5 H Lymph % (Auto) 11.5 L [place] % (Auto) 6.6 Eos % (Auto) 0.1 Baso % (Auto) 0.3 Neut # 16.9 H Lymph # 2.4 [place] # 1.4 H Eos # 0.0 Baso # 0.1 PT INR APTT Puncture Site pCO2 pO2 HCO3 ABG pH ABG Total CO2 ABG O2 Saturation ABG Base Excess ABG Hemoglobin ABG Carboxyhemoglobin POC ABG HHb (Measured) ABG Methemoglobin Stan Test ABG Potassium VBG pH VBG pCO2 VBG HCO3 VBG O2 Sat (Calc) VBG Base Excess A-a O2 Difference Respiratory Index Hgb O2 Saturation Glucose Lactate Mechanical Rate FiO2 Tidal Volume PEEP Crit Value Called To Crit Value Called By Crit Value Read Back Blood Gas Notified Time Sodium Potassium Chloride Carbon Dioxide Anion Gap BUN Creatinine Est GFR ( Amer) Est GFR (Non-Af Amer) POC Glucose (mg/dL) 22 L* 214 H 96 Random Glucose Serum Osmolality Lactic Acid Calcium Phosphorus Magnesium Arterial Blood Potassium Hep Bs Antigen Hep Bs Antibody Hep B Core IgM Ab Hepatitis C Antibody Blood Type Antibody Screen
--- NOTE | 2016-12-31 11:28 | CP.PCM.CON ---
History of Present Illness - History of Present Illness History of Present Illness: pt had CABG at [facility] on 08/2017, graft vessels where obtained from both lower medial anterior extremities. bILAT WOUNDS DID NOT HEAL AND REQUIRED DEBRIDEMENT WITH VAC PLACEMENT BILAT ADMITTED WITH SEPTIC SHOCK, RESP FAILURE REQUIRING VENT PMH: ESRD ON HD CABAG 08/2016 MARKUS HTN COPD Parkinson's disease PMH: HEP C+ COPD/MARKUS HTN PARKINSONS Past Patient History - Past Medical History & Family History Past Medical History?: Yes - Past Social History Smoking Status: Unknown If Ever Smoked - CARDIAC Hx Hypertension: Yes - PULMONARY Hx Chronic Obstructive Pulmonary Disease (COPD): Yes Hx Sleep Apnea: Yes - NEUROLOGICAL Hx Parkinson's Disease: Yes - HEENT Hx Glaucoma: Yes - RENAL Hx Chronic Kidney Disease: No - ENDOCRINE/METABOLIC Hx Diabetes Mellitus Type 2: Yes - HEMATOLOGICAL/ONCOLOGICAL Hx Blood Disorders: Yes Hx Blood Transfusions: Yes - INTEGUMENTARY Hx Dermatological Problems: No - MUSCULOSKELETAL/RHEUMATOLOGICAL Hx Musculoskeletal Disorders: No - GASTROINTESTINAL Hx Gastrointestinal Disorders: No - GENITOURINARY/GYNECOLOGICAL Hx Genitourinary Disorders: No - PSYCHIATRIC Hx Anxiety: Yes Hx Substance Use: No - SURGICAL HISTORY Hx Coronary Artery Bypass Graft: Yes - ANESTHESIA Hx Anesthesia: Yes Hx Anesthesia Reactions: No Hx Malignant Hyperthermia: No Has any member of the family had a problem w/ anesthesia?: No Meds Allergies/Adverse Reactions: Allergies Allergy/AdvReac Type Severity Reaction Status Date / Time Sulfa (Sulfonamide Allergy Verified 12/30/16 16:38 Antibiotics) - Medications Medications: Current Medications Sodium Bicarbonate 150 meq/ (Dextrose) 1,000 mls @ 100 mls/hr IV .Q10H GLADIS Vancomycin HCl 1,750 mg/ (Sodium Chloride) 250 mls @ 166.6 mls/hr IVPB Q72H GLADIS Vasopressin 40 units/ Sodium (Chloride) 40 mls @ 2.4 mls/hr IV .[id number] GLADIS PRN Reason: 0.04 UNITS/MIN Last Admin: 12/31/16 08:42 Dose: 2.4 mls/hr Dextrose/Sodium Chloride (Dextrose 5%/0.9% Ns 1000 Ml) 1,000 mls @ 100 mls/hr IV .Q10H GLADIS Last Admin: 12/31/16 08:33 Dose: 100 mls/hr Fentanyl Citrate 2,500 mcg/ (Sodium Chloride) 250 mls @ 113.39 mls/hr IV .Q2H13M PRN; Protocol; 10 MCG/KG/HR PRN Reason: FOLLOW TITRATION PROTOCOL Norepinephrine Bitartrate 16 (mg/ Sodium Chloride) 516 mls @ 9.67 mls/hr IV .Q24H PRN; Protocol; 5 MCG/MIN PRN Reason: TITRATE PER MD ORDER Pantoprazole Sodium (Protonix Inj) 40 mg IVP DAILY GLADIS Results - Vital Signs Recent Vital Signs: Last Vital Signs Temp 97.9 F 12/31/16 08:00 Pulse 65 12/31/16 11:00 Resp 23 12/31/16 11:00 BP 93/65 L 12/31/16 10:49 Pulse Ox 97 12/31/16 11:00 - Labs Result Diagrams: 12/31/16 06:35 12/31/16 04:00 Labs: Laboratory Results - last 24 hr 12/30/16 12/30/16 12/30/16 19:44 21:04 21:12 WBC RBC Hgb Hct MCV MCH MCHC RDW Plt Count MPV Neut % (Auto) Lymph % (Auto) [place] % (Auto) Eos % (Auto) Baso % (Auto) Neut # Lymph # [place] # Eos # Baso # PT INR APTT Puncture Site Rra pCO2 30 L pO2 295 H HCO3 26.9 ABG pH 7.52 H ABG Total CO2 25.4 ABG O2 Saturation 100.4 H ABG Base Excess 2.4 ABG Hemoglobin ABG Carboxyhemoglobin POC ABG HHb (Measured) ABG Methemoglobin Stan Test Na ABG Potassium 4.2 VBG pH VBG pCO2 VBG HCO3 VBG O2 Sat (Calc) VBG Base Excess A-a O2 Difference 381.0 Respiratory Index 1.3 Hgb O2 Saturation Glucose 99 Lactate 5.0 H* Mechanical Rate 14 FiO2 100.0 Tidal Volume 500 PEEP 5 Crit Value Called To Mariangel carias Crit Value Called By Mandi Crit Value Read Back Y Blood Gas Notified Time 2114 Sodium 132 134.0 Potassium 4.6 Chloride 89 L 99.0 Carbon Dioxide 25 Anion Gap 23 H BUN 98 H Creatinine 7.4 H* Est GFR ( Amer) 7 Est GFR (Non-Af Amer) 6 POC Glucose (mg/dL) Random Glucose 94 Serum Osmolality Lactic Acid 4.9 H* Calcium 7.2 L Phosphorus 8.6 H Magnesium 2.9 H Arterial Blood Potassium 4.2 Hep Bs Antigen Hep Bs Antibody Hep B Core IgM Ab Hepatitis C Antibody Blood Type Antibody Screen 12/30/16 12/30/16 12/30/16 21:15 21:16 22:01 WBC RBC Hgb Hct MCV MCH MCHC RDW Plt Count MPV Neut % (Auto) Lymph % (Auto) [place] % (Auto) Eos % (Auto) Baso % (Auto) Neut # Lymph # [place] # Eos # Baso # PT 27.1 H INR 2.3 APTT 41 H Puncture Site Venous pCO2 pO2 26 L HCO3 ABG pH ABG Total CO2 ABG O2 Saturation ABG Base Excess ABG Hemoglobin ABG Carboxyhemoglobin POC ABG HHb (Measured) ABG Methemoglobin Stan Test Na ABG Potassium VBG pH 7.44 H VBG pCO2 42 VBG HCO3 26.7 VBG O2 Sat (Calc) 47.1 VBG Base Excess 3.9 H A-a O2 Difference Respiratory Index Hgb O2 Saturation Glucose Lactate Mechanical Rate FiO2 Tidal Volume PEEP Crit Value Called To Crit Value Called By Crit Value Read Back Blood Gas Notified Time Sodium Potassium Chloride Carbon Dioxide Anion Gap BUN Creatinine Est GFR ( Amer) Est GFR (Non-Af Amer) POC Glucose (mg/dL) Random Glucose Serum Osmolality Lactic Acid Calcium Phosphorus Magnesium Arterial Blood Potassium Hep Bs Antigen Hep Bs Antibody Hep B Core IgM Ab Hepatitis C Antibody Blood Type O POSITIVE Antibody Screen Negative 12/30/16 12/30/16 12/31/16 22:32 23:49 01:17 WBC RBC Hgb Hct MCV MCH MCHC RDW Plt Count MPV Neut % (Auto) Lymph % (Auto) [place] % (Auto) Eos % (Auto) Baso % (Auto) Neut # Lymph # [place] # Eos # Baso # PT INR APTT Puncture Site pCO2 pO2 HCO3 ABG pH ABG Total CO2 ABG O2 Saturation ABG Base Excess ABG Hemoglobin ABG Carboxyhemoglobin POC ABG HHb (Measured) ABG Methemoglobin Stan Test ABG Potassium VBG pH VBG pCO2 VBG HCO3 VBG O2 Sat (Calc) VBG Base Excess A-a O2 Difference Respiratory Index Hgb O2 Saturation Glucose Lactate Mechanical Rate FiO2 Tidal Volume PEEP Crit Value Called To Crit Value Called By Crit Value Read Back Blood Gas Notified Time Sodium 132 Potassium 4.6 Chloride 91 L Carbon Dioxide 22 Anion Gap 24 H BUN 92 H Creatinine 6.9 H Est GFR ( Amer) 7 Est GFR (Non-Af Amer) 6 POC Glucose (mg/dL) 126 H 111 H Random Glucose 81 Serum Osmolality Lactic Acid Calcium 6.9 L Phosphorus Magnesium Arterial Blood Potassium Hep Bs Antigen Hep Bs Antibody Hep B Core IgM Ab Hepatitis C Antibody Blood Type Antibody Screen 12/31/16 12/31/16 12/31/16 02:36 04:00 05:07 WBC RBC Hgb Hct MCV MCH MCHC RDW Plt Count MPV Neut % (Auto) Lymph % (Auto) [place] % (Auto) Eos % (Auto) Baso % (Auto) Neut # Lymph # [place] # Eos # Baso # PT INR APTT Puncture Site Rb pCO2 23 L pO2 95 HCO3 17.9 L ABG pH 7.40 ABG Total CO2 14.9 L ABG O2 Saturation 98.6 H ABG Base Excess -9.0 L ABG Hemoglobin 11.0 L ABG Carboxyhemoglobin 2.0 H POC ABG HHb (Measured) 1.4 ABG Methemoglobin 0.8 Stan Test Na ABG Potassium VBG pH VBG pCO2 VBG HCO3 VBG O2 Sat (Calc) VBG Base Excess A-a O2 Difference 161.0 Respiratory Index 1.7 Hgb O2 Saturation 95.8 Glucose Lactate Mechanical Rate 14 FiO2 40.0 Tidal Volume 500 PEEP 5 Crit Value Called To Crit Value Called By Crit Value Read Back Blood Gas Notified Time Sodium 135 135 Potassium 4.7 5.0 Chloride 92 L 92 L Carbon Dioxide 21 L 17 L Anion Gap 27 H 30 H BUN 92 H 79 H Creatinine 7.2 H 7.2 H Est GFR ( Amer) 7 7 Est GFR (Non-Af Amer) 6 6 POC Glucose (mg/dL) Random Glucose 72 26 L* D Serum Osmolality 312 H Lactic Acid Calcium 7.3 L 7.5 L Phosphorus 8.6 H Magnesium 2.9 H Arterial Blood Potassium Hep Bs Antigen Negative Hep Bs Antibody Negative Hep B Core IgM Ab Negative Hepatitis C Antibody Reactive H Blood Type Antibody Screen 12/31/16 12/31/16 12/31/16 06:35 06:42 07:12 WBC 20.8 H RBC 4.61 Hgb 10.8 L Hct 34.6 MCV 75.1 L MCH 23.5 L MCHC 31.3 L RDW 21.5 H Plt Count 277 MPV 8.5 Neut % (Auto) 81.5 H Lymph % (Auto) 11.5 L [place] % (Auto) 6.6 Eos % (Auto) 0.1 Baso % (Auto) 0.3 Neut # 16.9 H Lymph # 2.4 [place] # 1.4 H Eos # 0.0 Baso # 0.1 PT INR APTT Puncture Site pCO2 pO2 HCO3 ABG pH ABG Total CO2 ABG O2 Saturation ABG Base Excess ABG Hemoglobin ABG Carboxyhemoglobin POC ABG HHb (Measured) ABG Methemoglobin Stan Test ABG Potassium VBG pH VBG pCO2 VBG HCO3 VBG O2 Sat (Calc) VBG Base Excess A-a O2 Difference Respiratory Index Hgb O2 Saturation Glucose Lactate Mechanical Rate FiO2 Tidal Volume PEEP Crit Value Called To Crit Value Called By Crit Value Read Back Blood Gas Notified Time Sodium Potassium Chloride Carbon Dioxide Anion Gap BUN Creatinine Est GFR ( Amer) Est GFR (Non-Af Amer) POC Glucose (mg/dL) 22 L* 214 H 96 Random Glucose Serum Osmolality Lactic Acid Calcium Phosphorus Magnesium Arterial Blood Potassium Hep Bs Antigen Hep Bs Antibody Hep B Core IgM Ab Hepatitis C Antibody Blood Type Antibody Screen
[2016-12-31] MEDS ORDERED: Dextrose 50% SYRINGE Inj (50 ml) IV ONE ×2 (11:46→12:00)
--- NOTE | 2016-12-31 11:53 | CON ---
DATE: 12/31/2016 The patient is a 56-year-old woman who presents to the Emergency Room on the evening of 12/30. She was in severe distress, and she was hypotensive. A code sepsis was called, and the pa keena immediately got 2 liters of fluids. Her immediate past history is that of coronary artery bypass graft surgery at the [facility] in 10/2015. She had been in rehab since then, and had debridement of her lower extremities where the vei n grafts were obtained. She had a wound VAC at the shelter. She was told that she was hypoglyc emic and bradycardiac upon admission to the Emergency Department. She was found to have been oozing from her leg wounds and was given DDAVP. It became apparent that she had acute kidney injury with a creatinine over 7, and she had little urine output. It was felt that she would need immediate dialys is for fluid overload and possibly acute kidney injury. She underwent dialysis attempt on 12/30 very late, but it was unsuccessful due to severe hypotension. No fluid was removed. Now a renal consult is requested again because of severe hypotension, little urine output and pulmonary edema. The creat inine is over 7. PAST MEDICAL HISTORY: Is that of likely ischemic cardiomyopathy. She is status post coronary artery bypass graft surgery in 2016. 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 She is status post 2 liters of fluid from code sepsis, and a chest x-r ay is consistent with pulmonary edema and pleural effusion. REVIEW OF SYSTEMS: Could not be obtained. The patient is obtunded, sedated, and she is presently on high doses of pressors including Levophed and vasopressin. SOCIAL HISTORY: Unknown. FAMILY HISTORY: Unknown. MEDICATIONS: At present include high doses of Levophed, high doses of vasopressin at bedside, and se dation. She is also on IV antibiotics, as per the ICU protocol. PHYSICAL EXAMINATION: VITAL SIGNS: When seen, the pressure was stable at 140/80. Pulse ox on a ventilator with oxygenatio n of 91%. Heart rate is 74. The only temperature that was recorded available is 97.9. She has marysol re facial edema and is anasarcic. ABDOMEN: Very distended. EXTREMITIES: She had 4+ edema. LUNGS: Decreased breath sounds. HEART: Regular rhythm, now approximately 68. LABORATORY DATA: Blood work shows hemoglobin of 10.8, white count of 20.8, platelet count of 277,000 . Hep C is positive. BUN is 79. Creatinine is 7.2. This is after attempt at dialysis. Phosphorou s is 8.6. Calcium is 7.5. Blood gas shows pH 7.4, pCO2 of 14.9, pO2 of 95 on the ventilator. IMPRESSION: The patient has shock either from sepsis or cardiogenic shock, and acute kidney injury, and she is oliguric. She likely has ischemic cardiomyopathy at baseline. PLAN: Would be for immediate dialysis attempt again. Hemofiltration is not available. We will try to slow efficiency dialysis to try to maintain hemodynamic stability and gradual fluid removal. We w ill follow up. Per Sargent MD cc: [id number] TT: 12/31/2016 11:52:49 Confirmation # [id number] Dictation # [id number] eva
[2016-12-31] MEDS ORDERED: Phenylephrine 30 MG in Sodium Chloride 0.9% 250 ML IV PRN (11:56)
[2016-12-31] MEDS ORDERED: Norepinephrine 16 MG in Sodium Chloride 0.9% 500 ML IV PRN (12:00)
[2016-12-31] MEDS ORDERED: Sodium Chloride 0.9% 250 ML IV ONE (12:27)
--- NOTE | 2016-12-31 13:06 | CP.CCUPN ---
<Obey Mistry S - Last Filed: 12/31/16 17:00> CCU Objective - Vital Signs / Intake & Output Vital Signs (Last 4 hours): Vital Signs Pulse Pulse Resp BP BP Pulse Ox 12/31/16 16:37 124 H 20 170/130 H 12/31/16 16:22 137 H 19 174/144 H 93 L 12/31/16 16:17 144 H 18 194/167 H 92 L 12/31/16 16:07 156 H 17 149/127 H 93 L 12/31/16 16:00 157 H 17 94 L 12/31/16 15:51 159 H 18 104/61 93 L 12/31/16 15:36 155 H 17 105/71 94 L 12/31/16 15:33 156 H 18 104/61 93 L 12/31/16 15:22 97 H 28 H 129/84 95 12/31/16 15:06 86 15 136/84 12/31/16 15:04 89 15 131/92 H 12/31/16 15:00 93 H 19 12/31/16 14:58 91 H 21 163/104 H 12/31/16 14:56 88 28 H 153/107 H 12/31/16 14:51 44 L 21 86/47 L 12/31/16 14:37 59 L 21 67/41 L 12/31/16 14:21 79 18 99/59 L 12/31/16 14:12 73 26 H 78/29 L 12/31/16 14:00 60 18 78/29 L 12/31/16 13:49 77 15 78/43 L 95 12/31/16 13:45 68 16 78/24 L 12/31/16 13:34 79 16 82/28 L 96 12/31/16 13:30 75 18 82/28 L 12/31/16 13:20 80 17 81/56 L 97 12/31/16 13:15 72 16 127/78 12/31/16 13:11 80 18 127/78 12/31/16 13:07 80 18 127/78 95 Intake and Output (Last 8hrs): Intake & Output 12/31/16 12/31/16 12/31/16 06:59 14:59 22:59 Intake Total 1661.5 1532.4 Output Total 40 0 Balance 1621.5 1532.4 Weight 250 lb 7.122 oz Intake: Intake, IV Amount 1661.5 1532.4 Right Antecubital 800 750 Left Hand 389.6 Left Internal Jugular 457.5 Left Distal Port 14.4 16.8 Left Medial Port Internal 131.1 Jugular Left Proximal Port 574.5 Internal Jugular LEFT mEDIAL IJ 60 Output: Urine 40 0 Urethral (Segura) 40 0 - Medications Active Medications: Active Medications Generic Name Dose Route Start Last Admin Trade Name Freq PRN Reason Stop Dose Admin Sodium Bicarbonate 150 meq/ 1,000 mls @ 100 mls/hr 12/30/16 19:45 12/31/16 16: 46 Dextrose IV 100 mls/hr .Q10H GLADIS Administration Vancomycin HCl 1,750 mg/ 250 mls @ 166.6 mls/hr 01/02/17 21:45 Sodium Chloride IVPB Q72H GLADIS Vasopressin 40 units/ Sodium 40 mls @ 2.4 mls/hr 12/31/16 01:30 12/31/16 08:42 Chloride IV 2.4 mls/hr .[id number] GLADIS Administration 0.04 UNITS/MIN Fentanyl Citrate 2,500 mcg/ 250 mls @ 113.39 mls/hr 12/31/16 09:15 Sodium Chloride IV .Q2H13M PRN FOLLOW TITRATION PROTOCOL Protocol 10 MCG/KG/HR Norepinephrine Bitartrate 16 516 mls @ 9.67 mls/hr 12/31/16 12:00 12/31/16 16: 30 mg/ Sodium Chloride IV 15 mcg/min .Q24H PRN Titration TITRATE PER MD ORDER Protocol 5 MCG/MIN Meropenem 500 mg/ Sodium 100 mls @ 100 mls/hr 12/31/16 15:00 12/31/16 16:21 Chloride IVPB 100 mls/hr Q8H GLADIS Administration Micafungin Sodium 100 mg/ 100 mls @ 100 mls/hr 12/31/16 14:00 12/31/16 13:55 Sodium Chloride IV 100 mls/hr Q24H GLADIS Administration Phenylephrine HCl 30 mg/ 253 mls @ 10.12 mls/hr 12/31/16 11:56 12/31/16 16:00 Sodium Chloride IV 90 mcg/min .Q24H PRN Titration TITRATE PER MD ORDER Protocol 20 MCG/MIN Epinephrine HCl 1 mg/ Sodium 250 mls @ 15 mls/hr 12/31/16 14:55 Chloride IV .[id number] PRN TITRATE PER MD ORDER Protocol 1 MCG/MIN Dextrose 1,000 mls @ 100 mls/hr 12/31/16 16:00 12/31/16 15:42 Dextrose 10% In Water IV 100 mls/hr .Q10H GLADIS Administration Pantoprazole Sodium 40 mg 12/31/16 10:00 12/31/16 16:21 Protonix Inj IVP 40 mg DAILY GLADIS Administration - Patient Studies Lab Studies: Microbiology Studies 12/31/16 10:21 Gram Stain - Preliminary Leg - Right 12/31/16 12:38 Gram Stain - Final Leg - Left Lab Studies 12/31/16 12/31/16 12/31/16 Range/Units 16:13 15:26 15:11 WBC (4.8-10.8) K/uL RBC (3.80-5.20) Mil/uL Hgb (11.0-16.0) g/dL Hct (34.0-47.0) % MCV (81.0-99.0) fL MCH (27.0-31.0) pg MCHC (33.0-37.0) g/dL RDW (11.5-14.5) % Plt Count (130-400) K/uL MPV (7.2-11.7) fL Neut % (Auto) (50.0-75.0) % Lymph % (Auto) (20.0-40.0) % [place] % (Auto) (0.0-10.0) % Eos % (Auto) (0.0-4.0) % Baso % (Auto) (0.0-2.0) % Neut # (1.8-7.0) K/uL Lymph # (1.0-4.3) K/uL [place] # (0.0-0.8) K/uL Eos # (0.0-0.7) K/uL Baso # (0.0-0.2) K/uL Differential Comment PT (9.7-12.2) SECONDS INR APTT (21-34) SECONDS Puncture Site Lf pCO2 56 H (35-45) mm/Hg pO2 12 L* (80-100) mm/Hg HCO3 11.7 L (21-28) mmol/L ABG pH 7.06 L* (7.35-7.45) ABG Total CO2 17.6 L (22-28) mmol/L ABG O2 Saturation 12.7 L (95-98) % ABG Base Excess -14.4 L (-2.0-3.0) mmol/L ABG Hemoglobin 11.6 L (11.7-17.4) g/dL ABG Carboxyhemoglobin 1.0 (0.5-1.5) % POC ABG HHb (Measured) 85.4 H (0.0-5.0) % ABG Methemoglobin 1.2 (0.0-3.0) % Stan Test Na ABG Potassium (3.6-5.2) mmol/L VBG pH (7.32-7.43) VBG pCO2 (40-60) mmHg VBG HCO3 mmol/L VBG O2 Sat (Calc) (40-65) % VBG Base Excess (0.0-2.0) mmol/L A-a O2 Difference 203.0 mm/Hg Respiratory Index 16.9 Hgb O2 Saturation 12.4 L (95.0-98.0) % Glucose (65-105) mg/dl Lactate (0.7-2.1) mmol/L Mechanical Rate 14 FiO2 40.0 % Tidal Volume 500 PEEP 5 Crit Value Called To Dr devonte mistry Crit Value Called By Vikki zheng captain cannery tender Crit Value Read Back Y Blood Gas Notified Time 1515 Sodium (132-148) mmol/L Potassium (3.6-5.2) mmol/L Chloride (98-107) mmol/L Carbon Dioxide (22-30) mmol/L Anion Gap (10-20) BUN (7-17) mg/dL Creatinine (0.7-1.2) MG/DL Est GFR ( Amer) Est GFR (Non-Af Amer) POC Glucose (mg/dL) 180 H 47 L (65-110) mg/dL Random Glucose (65-105) mg/dL Serum Osmolality (272-300) mosm/kg Lactic Acid (0.7-2.1) mmol/L Calcium (8.6-10.4) mg/dl Phosphorus (2.5-4.5) mg/dL Magnesium (1.6-2.3) mg/dL Arterial Blood Potassium (3.6-5.2) mmol/L Hep Bs Antigen (NEGATIVE) Hep Bs Antibody (NEGATIVE) Hep B Core IgM Ab (NEGATIVE) Hepatitis C Antibody (NEGATIVE) Blood Type Antibody Screen 12/31/16 12/31/16 12/31/16 Range/Units 13:57 12:41 11:43 WBC (4.8-10.8) K/uL RBC (3.80-5.20) Mil/uL Hgb (11.0-16.0) g/dL Hct (34.0-47.0) % MCV (81.0-99.0) fL MCH (27.0-31.0) pg MCHC (33.0-37.0) g/dL RDW (11.5-14.5) % Plt Count (130-400) K/uL MPV (7.2-11.7) fL Neut % (Auto) (50.0-75.0) % Lymph % (Auto) (20.0-40.0) % [place] % (Auto) (0.0-10.0) % Eos % (Auto) (0.0-4.0) % Baso % (Auto) (0.0-2.0) % Neut # (1.8-7.0) K/uL Lymph # (1.0-4.3) K/uL [place] # (0.0-0.8) K/uL Eos # (0.0-0.7) K/uL Baso # (0.0-0.2) K/uL Differential Comment PT (9.7-12.2) SECONDS INR APTT (21-34) SECONDS Puncture Site pCO2 (35-45) mm/Hg pO2 (80-100) mm/Hg HCO3 (21-28) mmol/L ABG pH (7.35-7.45) ABG Total CO2 (22-28) mmol/L ABG O2 Saturation (95-98) % ABG Base Excess (-2.0-3.0) mmol/L ABG Hemoglobin (11.7-17.4) g/dL ABG Carboxyhemoglobin (0.5-1.5) % POC ABG HHb (Measured) (0.0-5.0) % ABG Methemoglobin (0.0-3.0) % Stan Test ABG Potassium (3.6-5.2) mmol/L VBG pH (7.32-7.43) VBG pCO2 (40-60) mmHg VBG HCO3 mmol/L VBG O2 Sat (Calc) (40-65) % VBG Base Excess (0.0-2.0) mmol/L A-a O2 Difference mm/Hg Respiratory Index Hgb O2 Saturation (95.0-98.0) % Glucose (65-105) mg/dl Lactate (0.7-2.1) mmol/L Mechanical Rate FiO2 % Tidal Volume PEEP Crit Value Called To Crit Value Called By Crit Value Read Back Blood Gas Notified Time Sodium (132-148) mmol/L Potassium (3.6-5.2) mmol/L Chloride (98-107) mmol/L Carbon Dioxide (22-30) mmol/L Anion Gap (10-20) BUN (7-17) mg/dL Creatinine (0.7-1.2) MG/DL Est GFR ( Amer) Est GFR (Non-Af Amer) POC Glucose (mg/dL) 101 156 H 28 L* (65-110) mg/dL Random Glucose (65-105) mg/dL Serum Osmolality (272-300) mosm/kg Lactic Acid (0.7-2.1) mmol/L Calcium (8.6-10.4) mg/dl Phosphorus (2.5-4.5) mg/dL Magnesium (1.6-2.3) mg/dL Arterial Blood Potassium (3.6-5.2) mmol/L Hep Bs Antigen (NEGATIVE) Hep Bs Antibody (NEGATIVE) Hep B Core IgM Ab (NEGATIVE) Hepatitis C Antibody (NEGATIVE) Blood Type Antibody Screen 12/31/16 12/31/16 12/31/16 Range/Units 07:12 06:42 06:35 WBC 20.8 H (4.8-10.8) K/uL RBC 4.61 (3.80-5.20) Mil/uL Hgb 10.8 L (11.0-16.0) g/dL Hct 34.6 (34.0-47.0) % MCV 75.1 L (81.0-99.0) fL MCH 23.5 L (27.0-31.0) pg MCHC 31.3 L (33.0-37.0) g/dL RDW 21.5 H (11.5-14.5) % Plt Count 277 (130-400) K/uL MPV 8.5 (7.2-11.7) fL Neut % (Auto) 81.5 H (50.0-75.0) % Lymph % (Auto) 11.5 L (20.0-40.0) % [place] % (Auto) 6.6 (0.0-10.0) % Eos % (Auto) 0.1 (0.0-4.0) % Baso % (Auto) 0.3 (0.0-2.0) % Neut # 16.9 H (1.8-7.0) K/uL Lymph # 2.4 (1.0-4.3) K/uL [place] # 1.4 H (0.0-0.8) K/uL Eos # 0.0 (0.0-0.7) K/uL Baso # 0.1 (0.0-0.2) K/uL Differential Comment PT (9.7-12.2) SECONDS INR APTT (21-34) SECONDS Puncture Site pCO2 (35-45) mm/Hg pO2 (80-100) mm/Hg HCO3 (21-28) mmol/L ABG pH (7.35-7.45) ABG Total CO2 (22-28) mmol/L ABG O2 Saturation (95-98) % ABG Base Excess (-2.0-3.0) mmol/L ABG Hemoglobin (11.7-17.4) g/dL ABG Carboxyhemoglobin (0.5-1.5) % POC ABG HHb (Measured) (0.0-5.0) % ABG Methemoglobin (0.0-3.0) % Stan Test ABG Potassium (3.6-5.2) mmol/L VBG pH (7.32-7.43) VBG pCO2 (40-60) mmHg VBG HCO3 mmol/L VBG O2 Sat (Calc) (40-65) % VBG Base Excess (0.0-2.0) mmol/L A-a O2 Difference mm/Hg Respiratory Index Hgb O2 Saturation (95.0-98.0) % Glucose (65-105) mg/dl Lactate (0.7-2.1) mmol/L Mechanical Rate FiO2 % Tidal Volume PEEP Crit Value Called To Crit Value Called By Crit Value Read Back Blood Gas Notified Time Sodium (132-148) mmol/L Potassium (3.6-5.2) mmol/L Chloride (98-107) mmol/L Carbon Dioxide (22-30) mmol/L Anion Gap (10-20) BUN (7-17) mg/dL Creatinine (0.7-1.2) MG/DL Est GFR ( Amer) Est GFR (Non-Af Amer) POC Glucose (mg/dL) 96 214 H 22 L* (65-110) mg/dL Random Glucose (65-105) mg/dL Serum Osmolality (272-300) mosm/kg Lactic Acid (0.7-2.1) mmol/L Calcium (8.6-10.4) mg/dl Phosphorus (2.5-4.5) mg/dL Magnesium (1.6-2.3) mg/dL Arterial Blood Potassium (3.6-5.2) mmol/L Hep Bs Antigen (NEGATIVE) Hep Bs Antibody (NEGATIVE) Hep B Core IgM Ab (NEGATIVE) Hepatitis C Antibody (NEGATIVE) Blood Type Antibody Screen 12/31/16 12/31/16 12/31/16 Range/Units 05:07 04:00 02:36 WBC (4.8-10.8) K/uL RBC (3.80-5.20) Mil/uL Hgb (11.0-16.0) g/dL Hct (34.0-47.0) % MCV (81.0-99.0) fL MCH (27.0-31.0) pg MCHC (33.0-37.0) g/dL RDW (11.5-14.5) % Plt Count (130-400) K/uL MPV (7.2-11.7) fL Neut % (Auto) (50.0-75.0) % Lymph % (Auto) (20.0-40.0) % [place] % (Auto) (0.0-10.0) % Eos % (Auto) (0.0-4.0) % Baso % (Auto) (0.0-2.0) % Neut # (1.8-7.0) K/uL Lymph # (1.0-4.3) K/uL [place] # (0.0-0.8) K/uL Eos # (0.0-0.7) K/uL Baso # (0.0-0.2) K/uL Differential Comment PT (9.7-12.2) SECONDS INR APTT (21-34) SECONDS Puncture Site Rb pCO2 23 L (35-45) mm/Hg pO2 95 (80-100) mm/Hg HCO3 17.9 L (21-28) mmol/L ABG pH 7.40 (7.35-7.45) ABG Total CO2 14.9 L (22-28) mmol/L ABG O2 Saturation 98.6 H (95-98) % ABG Base Excess -9.0 L (-2.0-3.0) mmol/L ABG Hemoglobin 11.0 L (11.7-17.4) g/dL ABG Carboxyhemoglobin 2.0 H (0.5-1.5) % POC ABG HHb (Measured) 1.4 (0.0-5.0) % ABG Methemoglobin 0.8 (0.0-3.0) % Stan Test Na ABG Potassium (3.6-5.2) mmol/L VBG pH (7.32-7.43) VBG pCO2 (40-60) mmHg VBG HCO3 mmol/L VBG O2 Sat (Calc) (40-65) % VBG Base Excess (0.0-2.0) mmol/L A-a O2 Difference 161.0 mm/Hg Respiratory Index 1.7 Hgb O2 Saturation 95.8 (95.0-98.0) % Glucose (65-105) mg/dl Lactate (0.7-2.1) mmol/L Mechanical Rate 14 FiO2 40.0 % Tidal Volume 500 PEEP 5 Crit Value Called To Crit Value Called By Crit Value Read Back Blood Gas Notified Time Sodium 135 135 (132-148) mmol/L Potassium 5.0 4.7 (3.6-5.2) mmol/L Chloride 92 L 92 L (98-107) mmol/L Carbon Dioxide 17 L 21 L (22-30) mmol/L Anion Gap 30 H 27 H (10-20) BUN 79 H 92 H (7-17) mg/dL Creatinine 7.2 H 7.2 H (0.7-1.2) MG/DL Est GFR ( Amer) 7 7 Est GFR (Non-Af Amer) 6 6 POC Glucose (mg/dL) (65-110) mg/dL Random Glucose 26 L* D 72 (65-105) mg/dL Serum Osmolality 312 H (272-300) mosm/kg Lactic Acid (0.7-2.1) mmol/L Calcium 7.5 L 7.3 L (8.6-10.4) mg/dl Phosphorus 8.6 H (2.5-4.5) mg/dL Magnesium 2.9 H (1.6-2.3) mg/dL Arterial Blood Potassium (3.6-5.2) mmol/L Hep Bs Antigen Negative (NEGATIVE) Hep Bs Antibody Negative (NEGATIVE) Hep B Core IgM Ab Negative (NEGATIVE) Hepatitis C Antibody Reactive H (NEGATIVE) Blood Type Antibody Screen 12/31/16 12/30/16 12/30/16 Range/Units 01:17 23:49 22:32 WBC (4.8-10.8) K/uL RBC (3.80-5.20) Mil/uL Hgb (11.0-16.0) g/dL Hct (34.0-47.0) % MCV (81.0-99.0) fL MCH (27.0-31.0) pg MCHC (33.0-37.0) g/dL RDW (11.5-14.5) % Plt Count (130-400) K/uL MPV (7.2-11.7) fL Neut % (Auto) (50.0-75.0) % Lymph % (Auto) (20.0-40.0) % [place] % (Auto) (0.0-10.0) % Eos % (Auto) (0.0-4.0) % Baso % (Auto) (0.0-2.0) % Neut # (1.8-7.0) K/uL Lymph # (1.0-4.3) K/uL [place] # (0.0-0.8) K/uL Eos # (0.0-0.7) K/uL Baso # (0.0-0.2) K/uL Differential Comment PT (9.7-12.2) SECONDS INR APTT (21-34) SECONDS Puncture Site pCO2 (35-45) mm/Hg pO2 (80-100) mm/Hg HCO3 (21-28) mmol/L ABG pH (7.35-7.45) ABG Total CO2 (22-28) mmol/L ABG O2 Saturation (95-98) % ABG Base Excess (-2.0-3.0) mmol/L ABG Hemoglobin (11.7-17.4) g/dL ABG Carboxyhemoglobin (0.5-1.5) % POC ABG HHb (Measured) (0.0-5.0) % ABG Methemoglobin (0.0-3.0) % Stan Test ABG Potassium (3.6-5.2) mmol/L VBG pH (7.32-7.43) VBG pCO2 (40-60) mmHg VBG HCO3 mmol/L VBG O2 Sat (Calc) (40-65) % VBG Base Excess (0.0-2.0) mmol/L A-a O2 Difference mm/Hg Respiratory Index Hgb O2 Saturation (95.0-98.0) % Glucose (65-105) mg/dl Lactate (0.7-2.1) mmol/L Mechanical Rate FiO2 % Tidal Volume PEEP Crit Value Called To Crit Value Called By Crit Value Read Back Blood Gas Notified Time Sodium 132 (132-148) mmol/L Potassium 4.6 (3.6-5.2) mmol/L Chloride 91 L (98-107) mmol/L Carbon Dioxide 22 (22-30) mmol/L Anion Gap 24 H (10-20) BUN 92 H (7-17) mg/dL Creatinine 6.9 H (0.7-1.2) MG/DL Est GFR ( Amer) 7 Est GFR (Non-Af Amer) 6 POC Glucose (mg/dL) 111 H 126 H (65-110) mg/dL Random Glucose 81 (65-105) mg/dL Serum Osmolality (272-300) mosm/kg Lactic Acid (0.7-2.1) mmol/L Calcium 6.9 L (8.6-10.4) mg/dl Phosphorus (2.5-4.5) mg/dL Magnesium (1.6-2.3) mg/dL Arterial Blood Potassium (3.6-5.2) mmol/L Hep Bs Antigen (NEGATIVE) Hep Bs Antibody (NEGATIVE) Hep B Core IgM Ab (NEGATIVE) Hepatitis C Antibody (NEGATIVE) Blood Type Antibody Screen 12/30/16 12/30/16 12/30/16 Range/Units 22:01 21:16 21:15 WBC (4.8-10.8) K/uL RBC (3.80-5.20) Mil/uL Hgb (11.0-16.0) g/dL Hct (34.0-47.0) % MCV (81.0-99.0) fL MCH (27.0-31.0) pg MCHC (33.0-37.0) g/dL RDW (11.5-14.5) % Plt Count (130-400) K/uL MPV (7.2-11.7) fL Neut % (Auto) (50.0-75.0) % Lymph % (Auto) (20.0-40.0) % [place] % (Auto) (0.0-10.0) % Eos % (Auto) (0.0-4.0) % Baso % (Auto) (0.0-2.0) % Neut # (1.8-7.0) K/uL Lymph # (1.0-4.3) K/uL [place] # (0.0-0.8) K/uL Eos # (0.0-0.7) K/uL Baso # (0.0-0.2) K/uL Differential Comment PT 27.1 H (9.7-12.2) SECONDS INR 2.3 APTT 41 H (21-34) SECONDS Puncture Site Venous pCO2 (35-45) mm/Hg pO2 26 L (80-100) mm/Hg HCO3 (21-28) mmol/L ABG pH (7.35-7.45) ABG Total CO2 (22-28) mmol/L ABG O2 Saturation (95-98) % ABG Base Excess (-2.0-3.0) mmol/L ABG Hemoglobin (11.7-17.4) g/dL ABG Carboxyhemoglobin (0.5-1.5) % POC ABG HHb (Measured) (0.0-5.0) % ABG Methemoglobin (0.0-3.0) % Stan Test Na ABG Potassium (3.6-5.2) mmol/L VBG pH 7.44 H (7.32-7.43) VBG pCO2 42 (40-60) mmHg VBG HCO3 26.7 mmol/L VBG O2 Sat (Calc) 47.1 (40-65) % VBG Base Excess 3.9 H (0.0-2.0) mmol/L A-a O2 Difference mm/Hg Respiratory Index Hgb O2 Saturation (95.0-98.0) % Glucose (65-105) mg/dl Lactate (0.7-2.1) mmol/L Mechanical Rate FiO2 % Tidal Volume PEEP Crit Value Called To Crit Value Called By Crit Value Read Back Blood Gas Notified Time Sodium (132-148) mmol/L Potassium (3.6-5.2) mmol/L Chloride (98-107) mmol/L Carbon Dioxide (22-30) mmol/L Anion Gap (10-20) BUN (7-17) mg/dL Creatinine (0.7-1.2) MG/DL Est GFR ( Amer) Est GFR (Non-Af Amer) POC Glucose (mg/dL) (65-110) mg/dL Random Glucose (65-105) mg/dL Serum Osmolality (272-300) mosm/kg Lactic Acid (0.7-2.1) mmol/L Calcium (8.6-10.4) mg/dl Phosphorus (2.5-4.5) mg/dL Magnesium (1.6-2.3) mg/dL Arterial Blood Potassium (3.6-5.2) mmol/L Hep Bs Antigen (NEGATIVE) Hep Bs Antibody (NEGATIVE) Hep B Core IgM Ab (NEGATIVE) Hepatitis C Antibody (NEGATIVE) Blood Type O POSITIVE Antibody Screen Negative 12/30/16 12/30/16 12/30/16 Range/Units 21:12 21:04 19:44 WBC (4.8-10.8) K/uL RBC (3.80-5.20) Mil/uL Hgb (11.0-16.0) g/dL Hct (34.0-47.0) % MCV (81.0-99.0) fL MCH (27.0-31.0) pg MCHC (33.0-37.0) g/dL RDW (11.5-14.5) % Plt Count (130-400) K/uL MPV (7.2-11.7) fL Neut % (Auto) (50.0-75.0) % Lymph % (Auto) (20.0-40.0) % [place] % (Auto) (0.0-10.0) % Eos % (Auto) (0.0-4.0) % Baso % (Auto) (0.0-2.0) % Neut # (1.8-7.0) K/uL Lymph # (1.0-4.3) K/uL [place] # (0.0-0.8) K/uL Eos # (0.0-0.7) K/uL Baso # (0.0-0.2) K/uL Differential Comment PT (9.7-12.2) SECONDS INR APTT (21-34) SECONDS Puncture Site Rra pCO2 30 L (35-45) mm/Hg pO2 295 H (80-100) mm/Hg HCO3 26.9 (21-28) mmol/L ABG pH 7.52 H (7.35-7.45) ABG Total CO2 25.4 (22-28) mmol/L ABG O2 Saturation 100.4 H (95-98) % ABG Base Excess 2.4 (-2.0-3.0) mmol/L ABG Hemoglobin (11.7-17.4) g/dL ABG Carboxyhemoglobin (0.5-1.5) % POC ABG HHb (Measured) (0.0-5.0) % ABG Methemoglobin (0.0-3.0) % Stan Test Na ABG Potassium 4.2 (3.6-5.2) mmol/L VBG pH (7.32-7.43) VBG pCO2 (40-60) mmHg VBG HCO3 mmol/L VBG O2 Sat (Calc) (40-65) % VBG Base Excess (0.0-2.0) mmol/L A-a O2 Difference 381.0 mm/Hg Respiratory Index 1.3 Hgb O2 Saturation (95.0-98.0) % Glucose 99 (65-105) mg/dl Lactate 5.0 H* (0.7-2.1) mmol/L Mechanical Rate 14 FiO2 100.0 % Tidal Volume 500 PEEP 5 Crit Value Called To Mariangel carias Crit Value Called By Mandi Crit Value Read Back Y Blood Gas Notified Time 2114 Sodium 134.0 132 (132-148) mmol/L Potassium 4.6 (3.6-5.2) mmol/L Chloride 99.0 89 L (98-107) mmol/L Carbon Dioxide 25 (22-30) mmol/L Anion Gap 23 H (10-20) BUN 98 H (7-17) mg/dL Creatinine 7.4 H* (0.7-1.2) MG/DL Est GFR ( Amer) 7 Est GFR (Non-Af Amer) 6 POC Glucose (mg/dL) (65-110) mg/dL Random Glucose 94 (65-105) mg/dL Serum Osmolality (272-300) mosm/kg Lactic Acid 4.9 H* (0.7-2.1) mmol/L Calcium 7.2 L (8.6-10.4) mg/dl Phosphorus 8.6 H (2.5-4.5) mg/dL Magnesium 2.9 H (1.6-2.3) mg/dL Arterial Blood Potassium 4.2 (3.6-5.2) mmol/L Hep Bs Antigen (NEGATIVE) Hep Bs Antibody (NEGATIVE) Hep B Core IgM Ab (NEGATIVE) Hepatitis C Antibody (NEGATIVE) Blood Type Antibody Screen Laboratory Results - last 24 hr 12/30/16 12/30/16 12/30/16 19:44 21:04 21:12 WBC RBC Hgb Hct MCV MCH MCHC RDW Plt Count MPV Neut % (Auto) Lymph % (Auto) [place] % (Auto) Eos % (Auto) Baso % (Auto) Neut # Lymph # [place] # Eos # Baso # Differential Comment PT INR APTT Puncture Site Rra pCO2 30 L pO2 295 H HCO3 26.9 ABG pH 7.52 H ABG Total CO2 25.4 ABG O2 Saturation 100.4 H ABG Base Excess 2.4 ABG Hemoglobin ABG Carboxyhemoglobin POC ABG HHb (Measured) ABG Methemoglobin Stan Test Na ABG Potassium 4.2 VBG pH VBG pCO2 VBG HCO3 VBG O2 Sat (Calc) VBG Base Excess A-a O2 Difference 381.0 Respiratory Index 1.3 Hgb O2 Saturation Glucose 99 Lactate 5.0 H* Mechanical Rate 14 FiO2 100.0 Tidal Volume 500 PEEP 5 Crit Value Called To Mariangel carias Crit Value Called By Mandi Crit Value Read Back Y Blood Gas Notified Time 2114 Sodium 132 134.0 Potassium 4.6 Chloride 89 L 99.0 Carbon Dioxide 25 Anion Gap 23 H BUN 98 H Creatinine 7.4 H* Est GFR ( Amer) 7 Est GFR (Non-Af Amer) 6 POC Glucose (mg/dL) Random Glucose 94 Serum Osmolality Lactic Acid 4.9 H* Calcium 7.2 L Phosphorus 8.6 H Magnesium 2.9 H Arterial Blood Potassium 4.2 Hep Bs Antigen Hep Bs Antibody Hep B Core IgM Ab Hepatitis C Antibody Blood Type Antibody Screen 12/30/16 12/30/16 12/30/16 21:15 21:16 22:01 WBC RBC Hgb Hct MCV MCH MCHC RDW Plt Count MPV Neut % (Auto) Lymph % (Auto) [place] % (Auto) Eos % (Auto) Baso % (Auto) Neut # Lymph # [place] # Eos # Baso # Differential Comment PT 27.1 H INR 2.3 APTT 41 H Puncture Site Venous pCO2 pO2 26 L HCO3 ABG pH ABG Total CO2 ABG O2 Saturation ABG Base Excess ABG Hemoglobin ABG Carboxyhemoglobin POC ABG HHb (Measured) ABG Methemoglobin Stan Test Na ABG Potassium VBG pH 7.44 H VBG pCO2 42 VBG HCO3 26.7 VBG O2 Sat (Calc) 47.1 VBG Base Excess 3.9 H A-a O2 Difference Respiratory Index Hgb O2 Saturation Glucose Lactate Mechanical Rate FiO2 Tidal Volume PEEP Crit Value Called To Crit Value Called By Crit Value Read Back Blood Gas Notified Time Sodium Potassium Chloride Carbon Dioxide Anion Gap BUN Creatinine Est GFR ( Amer) Est GFR (Non-Af Amer) POC Glucose (mg/dL) Random Glucose Serum Osmolality Lactic Acid Calcium Phosphorus Magnesium Arterial Blood Potassium Hep Bs Antigen Hep Bs Antibody Hep B Core IgM Ab Hepatitis C Antibody Blood Type O POSITIVE Antibody Screen Negative 12/30/16 12/30/16 12/31/16 22:32 23:49 01:17 WBC RBC Hgb Hct MCV MCH MCHC RDW Plt Count MPV Neut % (Auto) Lymph % (Auto) [place] % (Auto) Eos % (Auto) Baso % (Auto) Neut # Lymph # [place] # Eos # Baso # Differential Comment PT INR APTT Puncture Site pCO2 pO2 HCO3 ABG pH ABG Total CO2 ABG O2 Saturation ABG Base Excess ABG Hemoglobin ABG Carboxyhemoglobin POC ABG HHb (Measured) ABG Methemoglobin Stan Test ABG Potassium VBG pH VBG pCO2 VBG HCO3 VBG O2 Sat (Calc) VBG Base Excess A-a O2 Difference Respiratory Index Hgb O2 Saturation Glucose Lactate Mechanical Rate FiO2 Tidal Volume PEEP Crit Value Called To Crit Value Called By Crit Value Read Back Blood Gas Notified Time Sodium 132 Potassium 4.6 Chloride 91 L Carbon Dioxide 22 Anion Gap 24 H BUN 92 H Creatinine 6.9 H Est GFR ( Amer) 7 Est GFR (Non-Af Amer) 6 POC Glucose (mg/dL) 126 H 111 H Random Glucose 81 Serum Osmolality Lactic Acid Calcium 6.9 L Phosphorus Magnesium Arterial Blood Potassium Hep Bs Antigen Hep Bs Antibody Hep B Core IgM Ab Hepatitis C Antibody Blood Type Antibody Screen 12/31/16 12/31/16 12/31/16 02:36 04:00 05:07 WBC RBC Hgb Hct MCV MCH MCHC RDW Plt Count MPV Neut % (Auto) Lymph % (Auto) [place] % (Auto) Eos % (Auto) Baso % (Auto) Neut # Lymph # [place] # Eos # Baso # Differential Comment PT INR APTT Puncture Site Rb pCO2 23 L pO2 95 HCO3 17.9 L ABG pH 7.40 ABG Total CO2 14.9 L ABG O2 Saturation 98.6 H ABG Base Excess -9.0 L ABG Hemoglobin 11.0 L ABG Carboxyhemoglobin 2.0 H POC ABG HHb (Measured) 1.4 ABG Methemoglobin 0.8 Stan Test Na ABG Potassium VBG pH VBG pCO2 VBG HCO3 VBG O2 Sat (Calc) VBG Base Excess A-a O2 Difference 161.0 Respiratory Index 1.7 Hgb O2 Saturation 95.8 Glucose Lactate Mechanical Rate 14 FiO2 40.0 Tidal Volume 500 PEEP 5 Crit Value Called To Crit Value Called By Crit Value Read Back Blood Gas Notified Time Sodium 135 135 Potassium 4.7 5.0 Chloride 92 L 92 L Carbon Dioxide 21 L 17 L Anion Gap 27 H 30 H BUN 92 H 79 H Creatinine 7.2 H 7.2 H Est GFR ( Amer) 7 7 Est GFR (Non-Af Amer) 6 6 POC Glucose (mg/dL) Random Glucose 72 26 L* D Serum Osmolality 312 H Lactic Acid Calcium 7.3 L 7.5 L Phosphorus 8.6 H Magnesium 2.9 H Arterial Blood Potassium Hep Bs Antigen Negative Hep Bs Antibody Negative Hep B Core IgM Ab Negative Hepatitis C Antibody Reactive H Blood Type Antibody Screen 12/31/16 12/31/16 12/31/16 06:35 06:42 07:12 WBC 20.8 H RBC 4.61 Hgb 10.8 L Hct 34.6 MCV 75.1 L MCH 23.5 L MCHC 31.3 L RDW 21.5 H Plt Count 277 MPV 8.5 Neut % (Auto) 81.5 H Lymph % (Auto) 11.5 L [place] % (Auto) 6.6 Eos % (Auto) 0.1 Baso % (Auto) 0.3 Neut # 16.9 H Lymph # 2.4 [place] # 1.4 H Eos # 0.0 Baso # 0.1 Differential Comment PT INR APTT Puncture Site pCO2 pO2 HCO3 ABG pH ABG Total CO2 ABG O2 Saturation ABG Base Excess ABG Hemoglobin ABG Carboxyhemoglobin POC ABG HHb (Measured) ABG Methemoglobin Stan Test ABG Potassium VBG pH VBG pCO2 VBG HCO3 VBG O2 Sat (Calc) VBG Base Excess A-a O2 Difference Respiratory Index Hgb O2 Saturation Glucose Lactate Mechanical Rate FiO2 Tidal Volume PEEP Crit Value Called To Crit Value Called By Crit Value Read Back Blood Gas Notified Time Sodium Potassium Chloride Carbon Dioxide Anion Gap BUN Creatinine Est GFR ( Amer) Est GFR (Non-Af Amer) POC Glucose (mg/dL) 22 L* 214 H 96 Random Glucose Serum Osmolality Lactic Acid Calcium Phosphorus Magnesium Arterial Blood Potassium Hep Bs Antigen Hep Bs Antibody Hep B Core IgM Ab Hepatitis C Antibody Blood Type Antibody Screen 12/31/16 12/31/16 12/31/16 11:43 12:41 13:57 WBC RBC Hgb Hct MCV MCH MCHC RDW Plt Count MPV Neut % (Auto) Lymph % (Auto) [place] % (Auto) Eos % (Auto) Baso % (Auto) Neut # Lymph # [place] # Eos # Baso # Differential Comment PT INR APTT Puncture Site pCO2 pO2 HCO3 ABG pH ABG Total CO2 ABG O2 Saturation ABG Base Excess ABG Hemoglobin ABG Carboxyhemoglobin POC ABG HHb (Measured) ABG Methemoglobin Stan Test ABG Potassium VBG pH VBG pCO2 VBG HCO3 VBG O2 Sat (Calc) VBG Base Excess A-a O2 Difference Respiratory Index Hgb O2 Saturation Glucose Lactate Mechanical Rate FiO2 Tidal Volume PEEP Crit Value Called To Crit Value Called By Crit Value Read Back Blood Gas Notified Time Sodium Potassium Chloride Carbon Dioxide Anion Gap BUN Creatinine Est GFR ( Amer) Est GFR (Non-Af Amer) POC Glucose (mg/dL) 28 L* 156 H 101 Random Glucose Serum Osmolality Lactic Acid Calcium Phosphorus Magnesium Arterial Blood Potassium Hep Bs Antigen Hep Bs Antibody Hep B Core IgM Ab Hepatitis C Antibody Blood Type Antibody Screen 12/31/16 12/31/16 12/31/16 15:11 15:26 16:13 WBC RBC Hgb Hct MCV MCH MCHC RDW Plt Count MPV Neut % (Auto) Lymph % (Auto) [place] % (Auto) Eos % (Auto) Baso % (Auto) Neut # Lymph # [place] # Eos # Baso # Differential Comment PT INR APTT Puncture Site Lf pCO2 56 H pO2 12 L* HCO3 11.7 L ABG pH 7.06 L* ABG Total CO2 17.6 L ABG O2 Saturation 12.7 L ABG Base Excess -14.4 L ABG Hemoglobin 11.6 L ABG Carboxyhemoglobin 1.0 POC ABG HHb (Measured) 85.4 H ABG Methemoglobin 1.2 Stan Test Na ABG Potassium VBG pH VBG pCO2 VBG HCO3 VBG O2 Sat (Calc) VBG Base Excess A-a O2 Difference 203.0 Respiratory Index 16.9 Hgb O2 Saturation 12.4 L Glucose Lactate Mechanical Rate 14 FiO2 40.0 Tidal Volume 500 PEEP 5 Crit Value Called To Dr devonte mistry Crit Value Called By Vikki zheng captain cannery tender Crit Value Read Back Y Blood Gas Notified Time 1515 Sodium Potassium Chloride Carbon Dioxide Anion Gap BUN Creatinine Est GFR ( Amer) Est GFR (Non-Af Amer) POC Glucose (mg/dL) 47 L 180 H Random Glucose Serum Osmolality Lactic Acid Calcium Phosphorus Magnesium Arterial Blood Potassium Hep Bs Antigen Hep Bs Antibody Hep B Core IgM Ab Hepatitis C Antibody Blood Type Antibody Screen Attending/Attestation - Attestation I have personally seen and examined this patient.: Yes I have fully participated in the care of the patient.: Yes I have reviewed all pertinent clinical information: Yes Notes (Text): 12/31/16 17:13 Patient seen and examined in the intensive care unit. Case discussed with staff in the morning rounds. Patient is currently intubated. PVRC: FiO2 50%, PEEP 5, RR 14, Tvolume 500. 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 Currently maxed out on vasopressin and levophed, started on phenylephrine Not tolerating dialysis/SLED Seen by infectious disease and on triple antibiotic coverage Extreme acidosis on bicarbonate drip Status post cardiac arrest and resuscitation Spoke with family at length <Bianka Ware - Last Filed: 12/31/16 17:49> CCU Subjective - Physician Review Subjective (Free Text): Patient was seen and examined at examined. Patient is currently intubated. PVRC : FiO2 40%, PEEP 5, RR 14, Tvolume 500. 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 Currently maxed out on vasopressin and levophed, started on phenylephrine. Patient went to HD last night but could only tolerate 45 min due to hypotension. Patient is currently on slow dialysis IE SLED to maintain hemodynamic stability. Currently patient is tolerating it well. 12/31/16 15:31 CODE BLUE 14:52 Patient went into asytole. ACLS initiated. Patient was given 1 amp of sodium bicarb, regained pulse and rhythm. Current vitals: 129/84, RR 14, HR 77, continued on ventilation. Patient is currently maxed out on vasopressin and levophed, started on phenylephrine, sodium bicarb drip and D10 drip. No corneal reflex, no gag reflex, pupils dilated, nonresponsive to light. Naomi is speaking with the family about code status. Critical Care Time Spent (in minutes): 55 CCU Objective - Vital Signs / Intake & Output Vital Signs (Last 4 hours): Vital Signs Temp Pulse Resp BP Pulse Ox 12/31/16 12:34 77 18 120/78 97 12/31/16 12:20 69 23 86/54 L 97 12/31/16 12:17 69 23 85/54 L 97 12/31/16 12:14 67 22 88/54 L 12/31/16 12:04 61 25 H 115/61 94 L 12/31/16 12:00 98.5 F 61 24 93 L 12/31/16 11:49 61 26 H 89/55 L 12/31/16 11:35 61 25 H 79/49 L 12/31/16 11:25 61 26 H 77/52 L 12/31/16 11:20 61 25 H 79/51 L 95 12/31/16 11:08 63 25 H 79/49 L 97 12/31/16 11:05 63 26 H 75/52 L 98 12/31/16 11:01 65 25 H 97 12/31/16 11:00 65 23 97 12/31/16 10:49 65 24 93/65 L 98 12/31/16 10:35 67 17 100/71 98 12/31/16 10:20 69 20 113/74 97 12/31/16 10:06 71 20 125/80 96 12/31/16 09:56 74 23 91 L 12/31/16 09:51 68 25 H 142/80 97 12/31/16 09:34 63 25 H 94/61 L 12/31/16 09:19 61 25 H 86/56 L 96 12/31/16 09:08 61 25 H 82/53 L 97 Intake and Output (Last 8hrs): Intake & Output 12/30/16 12/31/16 12/31/16 22:59 06:59 14:59 Intake Total 2293.1 1661.5 1181.0 Output Total 40 0 Balance 2293.1 1621.5 1181.0 Weight 265 lb 250 lb 7.122 oz Intake: Intake, IV Amount 2293.1 1661.5 1181.0 Right Antecubital 2199 800 500 Left Hand 64.1 389.6 Left Internal Jugular 30 457.5 Left Distal Port 14.4 14.4 Left Medial Port Internal 114.0 Jugular Left Proximal Port 527.6 Internal Jugular LEFT mEDIAL IJ 25 Output: Urine 40 0 Urethral (Segura) 40 0 - Physical Exam Physical Exam Limitations: Positive for: Other (INTUBATED, ANASARCA ) Head: Positive for: Atraumatic, Normocephalic Respiratory/Chest: Positive for: Decreased Breath Sounds Cardiovascular: Positive for: Bradycardic Abdomen: Positive for: Distention Upper Extremity: Positive for: Edema, Other (FAINT PULSES ) Lower Extremity: Positive for: Edema, Other (2+ pitting edema, wound vacs on bilateral medial extremities, not connected to suction. Additional lesion on medial Left knee. no palpable or doppler-able DPs or PTs pulses. Upon removal of wound vac sponges, Left leg muscle and tendon are visible in medial aspect. Right leg, muscle and tendon visible superior to medial malleoli. ) Skin: Positive for: Dry Psychiatric: Positive for: Other (INTUBATED ) - Medications Active Medications: Active Medications Generic Name Dose Route Start Last Admin Trade Name Freq PRN Reason Stop Dose Admin Sodium Bicarbonate 150 meq/ 1,000 mls @ 100 mls/hr 12/30/16 19:45 Dextrose IV .Q10H GLADIS Vancomycin HCl 1,750 mg/ 250 mls @ 166.6 mls/hr 01/02/17 21:45 Sodium Chloride IVPB Q72H GLADIS Vasopressin 40 units/ Sodium 40 mls @ 2.4 mls/hr 12/31/16 01:30 12/31/16 08:42 Chloride IV 2.4 mls/hr .[id number] GLADIS Administration 0.04 UNITS/MIN Fentanyl Citrate 2,500 mcg/ 250 mls @ 113.39 mls/hr 12/31/16 09:15 Sodium Chloride IV .Q2H13M PRN FOLLOW TITRATION PROTOCOL Protocol 10 MCG/KG/HR Norepinephrine Bitartrate 16 516 mls @ 9.67 mls/hr 12/31/16 12:00 mg/ Sodium Chloride IV .Q24H PRN TITRATE PER MD ORDER Protocol 5 MCG/MIN Meropenem 500 mg/ Sodium 100 mls @ 100 mls/hr 12/31/16 14:00 Chloride IVPB Q8 GLADIS Micafungin Sodium 100 mg/ 100 mls @ 100 mls/hr 12/31/16 11:30 Sodium Chloride IV Q24H GLADIS Phenylephrine HCl 30 mg/ 253 mls @ 10.12 mls/hr 12/31/16 11:56 12/31/16 13:04 Sodium Chloride IV 70 mcg/min .Q24H PRN Titration TITRATE PER MD ORDER Protocol 20 MCG/MIN Sodium Chloride 250 mls @ 1,000 mls/hr 12/31/16 12:27 Sodium Chloride 0.9% IV 12/31/16 12:41 .Q15M ONE Pantoprazole Sodium 40 mg 12/31/16 10:00 Protonix Inj IVP DAILY GLADIS - Patient Studies Lab Studies: Lab Studies 12/31/16 12/31/16 12/31/16 Range/Units 11:43 07:12 06:42 WBC (4.8-10.8) K/uL RBC (3.80-5.20) Mil/uL Hgb (11.0-16.0) g/dL Hct (34.0-47.0) % MCV (81.0-99.0) fL MCH (27.0-31.0) pg MCHC (33.0-37.0) g/dL RDW (11.5-14.5) % Plt Count (130-400) K/uL MPV (7.2-11.7) fL Neut % (Auto) (50.0-75.0) % Lymph % (Auto) (20.0-40.0) % [place] % (Auto) (0.0-10.0) % Eos % (Auto) (0.0-4.0) % Baso % (Auto) (0.0-2.0) % Neut # (1.8-7.0) K/uL Lymph # (1.0-4.3) K/uL [place] # (0.0-0.8) K/uL Eos # (0.0-0.7) K/uL Baso # (0.0-0.2) K/uL Differential Comment PT (9.7-12.2) SECONDS INR APTT (21-34) SECONDS Puncture Site pCO2 (35-45) mm/Hg pO2 (80-100) mm/Hg HCO3 (21-28) mmol/L ABG pH (7.35-7.45) ABG Total CO2 (22-28) mmol/L ABG O2 Saturation (95-98) % ABG Base Excess (-2.0-3.0) mmol/L ABG Hemoglobin (11.7-17.4) g/dL ABG Carboxyhemoglobin (0.5-1.5) % POC ABG HHb (Measured) (0.0-5.0) % ABG Methemoglobin (0.0-3.0) % Stan Test ABG Potassium (3.6-5.2) mmol/L VBG pH (7.32-7.43) VBG pCO2 (40-60) mmHg VBG HCO3 mmol/L VBG O2 Sat (Calc) (40-65) % VBG Base Excess (0.0-2.0) mmol/L A-a O2 Difference mm/Hg Respiratory Index Hgb O2 Saturation (95.0-98.0) % Glucose (65-105) mg/dl Lactate (0.7-2.1) mmol/L Mechanical Rate FiO2 % Tidal Volume PEEP Crit Value Called To Crit Value Called By Crit Value Read Back Blood Gas Notified Time Sodium (132-148) mmol/L Potassium (3.6-5.2) mmol/L Chloride (98-107) mmol/L Carbon Dioxide (22-30) mmol/L Anion Gap (10-20) BUN (7-17) mg/dL Creatinine (0.7-1.2) MG/DL Est GFR ( Amer) Est GFR (Non-Af Amer) POC Glucose (mg/dL) 28 L* 96 214 H (65-110) mg/dL Random Glucose (65-105) mg/dL Serum Osmolality (272-300) mosm/kg Lactic Acid (0.7-2.1) mmol/L Calcium (8.6-10.4) mg/dl Phosphorus (2.5-4.5) mg/dL Magnesium (1.6-2.3) mg/dL Arterial Blood Potassium (3.6-5.2) mmol/L Hep Bs Antigen (NEGATIVE) Hep Bs Antibody (NEGATIVE) Hep B Core IgM Ab (NEGATIVE) Hepatitis C Antibody (NEGATIVE) Blood Type Antibody Screen 12/31/16 12/31/16 12/31/16 Range/Units 06:35 05:07 04:00 WBC 20.8 H (4.8-10.8) K/uL RBC 4.61 (3.80-5.20) Mil/uL Hgb 10.8 L (11.0-16.0) g/dL Hct 34.6 (34.0-47.0) % MCV 75.1 L (81.0-99.0) fL MCH 23.5 L (27.0-31.0) pg MCHC 31.3 L (33.0-37.0) g/dL RDW 21.5 H (11.5-14.5) % Plt Count 277 (130-400) K/uL MPV 8.5 (7.2-11.7) fL Neut % (Auto) 81.5 H (50.0-75.0) % Lymph % (Auto) 11.5 L (20.0-40.0) % [place] % (Auto) 6.6 (0.0-10.0) % Eos % (Auto) 0.1 (0.0-4.0) % Baso % (Auto) 0.3 (0.0-2.0) % Neut # 16.9 H (1.8-7.0) K/uL Lymph # 2.4 (1.0-4.3) K/uL [place] # 1.4 H (0.0-0.8) K/uL Eos # 0.0 (0.0-0.7) K/uL Baso # 0.1 (0.0-0.2) K/uL Differential Comment PT (9.7-12.2) SECONDS INR APTT (21-34) SECONDS Puncture Site Rb pCO2 23 L (35-45) mm/Hg pO2 95 (80-100) mm/Hg HCO3 17.9 L (21-28) mmol/L ABG pH 7.40 (7.35-7.45) ABG Total CO2 14.9 L (22-28) mmol/L ABG O2 Saturation 98.6 H (95-98) % ABG Base Excess -9.0 L (-2.0-3.0) mmol/L ABG Hemoglobin 11.0 L (11.7-17.4) g/dL ABG Carboxyhemoglobin 2.0 H (0.5-1.5) % POC ABG HHb (Measured) 1.4 (0.0-5.0) % ABG Methemoglobin 0.8 (0.0-3.0) % Stan Test Na ABG Potassium (3.6-5.2) mmol/L VBG pH (7.32-7.43) VBG pCO2 (40-60) mmHg VBG HCO3 mmol/L VBG O2 Sat (Calc) (40-65) % VBG Base Excess (0.0-2.0) mmol/L A-a O2 Difference 161.0 mm/Hg Respiratory Index 1.7 Hgb O2 Saturation 95.8 (95.0-98.0) % Glucose (65-105) mg/dl Lactate (0.7-2.1) mmol/L Mechanical Rate 14 FiO2 40.0 % Tidal Volume 500 PEEP 5 Crit Value Called To Crit Value Called By Crit Value Read Back Blood Gas Notified Time Sodium 135 (132-148) mmol/L Potassium 5.0 (3.6-5.2) mmol/L Chloride 92 L (98-107) mmol/L Carbon Dioxide 17 L (22-30) mmol/L Anion Gap 30 H (10-20) BUN 79 H (7-17) mg/dL Creatinine 7.2 H (0.7-1.2) MG/DL Est GFR ( Amer) 7 Est GFR (Non-Af Amer) 6 POC Glucose (mg/dL) 22 L* (65-110) mg/dL Random Glucose 26 L* D (65-105) mg/dL Serum Osmolality 312 H (272-300) mosm/kg Lactic Acid (0.7-2.1) mmol/L Calcium 7.5 L (8.6-10.4) mg/dl Phosphorus 8.6 H (2.5-4.5) mg/dL Magnesium 2.9 H (1.6-2.3) mg/dL Arterial Blood Potassium (3.6-5.2) mmol/L Hep Bs Antigen (NEGATIVE) Hep Bs Antibody (NEGATIVE) Hep B Core IgM Ab (NEGATIVE) Hepatitis C Antibody (NEGATIVE) Blood Type Antibody Screen 12/31/16 12/31/16 12/30/16 Range/Units 02:36 01:17 23:49 WBC (4.8-10.8) K/uL RBC (3.80-5.20) Mil/uL Hgb (11.0-16.0) g/dL Hct (34.0-47.0) % MCV (81.0-99.0) fL MCH (27.0-31.0) pg MCHC (33.0-37.0) g/dL RDW (11.5-14.5) % Plt Count (130-400) K/uL MPV (7.2-11.7) fL Neut % (Auto) (50.0-75.0) % Lymph % (Auto) (20.0-40.0) % [place] % (Auto) (0.0-10.0) % Eos % (Auto) (0.0-4.0) % Baso % (Auto) (0.0-2.0) % Neut # (1.8-7.0) K/uL Lymph # (1.0-4.3) K/uL [place] # (0.0-0.8) K/uL Eos # (0.0-0.7) K/uL Baso # (0.0-0.2) K/uL Differential Comment PT (9.7-12.2) SECONDS INR APTT (21-34) SECONDS Puncture Site pCO2 (35-45) mm/Hg pO2 (80-100) mm/Hg HCO3 (21-28) mmol/L ABG pH (7.35-7.45) ABG Total CO2 (22-28) mmol/L ABG O2 Saturation (95-98) % ABG Base Excess (-2.0-3.0) mmol/L ABG Hemoglobin (11.7-17.4) g/dL ABG Carboxyhemoglobin (0.5-1.5) % POC ABG HHb (Measured) (0.0-5.0) % ABG Methemoglobin (0.0-3.0) % Stan Test ABG Potassium (3.6-5.2) mmol/L VBG pH (7.32-7.43) VBG pCO2 (40-60) mmHg VBG HCO3 mmol/L VBG O2 Sat (Calc) (40-65) % VBG Base Excess (0.0-2.0) mmol/L A-a O2 Difference mm/Hg Respiratory Index Hgb O2 Saturation (95.0-98.0) % Glucose (65-105) mg/dl Lactate (0.7-2.1) mmol/L Mechanical Rate FiO2 % Tidal Volume PEEP Crit Value Called To Crit Value Called By Crit Value Read Back Blood Gas Notified Time Sodium 135 132 (132-148) mmol/L Potassium 4.7 4.6 (3.6-5.2) mmol/L Chloride 92 L 91 L (98-107) mmol/L Carbon Dioxide 21 L 22 (22-30) mmol/L Anion Gap 27 H 24 H (10-20) BUN 92 H 92 H (7-17) mg/dL Creatinine 7.2 H 6.9 H (0.7-1.2) MG/DL Est GFR ( Amer) 7 7 Est GFR (Non-Af Amer) 6 6 POC Glucose (mg/dL) 111 H (65-110) mg/dL Random Glucose 72 81 (65-105) mg/dL Serum Osmolality (272-300) mosm/kg Lactic Acid (0.7-2.1) mmol/L Calcium 7.3 L 6.9 L (8.6-10.4) mg/dl Phosphorus (2.5-4.5) mg/dL Magnesium (1.6-2.3) mg/dL Arterial Blood Potassium (3.6-5.2) mmol/L Hep Bs Antigen Negative (NEGATIVE) Hep Bs Antibody Negative (NEGATIVE) Hep B Core IgM Ab Negative (NEGATIVE) Hepatitis C Antibody Reactive H (NEGATIVE) Blood Type Antibody Screen 12/30/16 12/30/16 12/30/16 Range/Units 22:32 22:01 21:16 WBC (4.8-10.8) K/uL RBC (3.80-5.20) Mil/uL Hgb (11.0-16.0) g/dL Hct (34.0-47.0) % MCV (81.0-99.0) fL MCH (27.0-31.0) pg MCHC (33.0-37.0) g/dL RDW (11.5-14.5) % Plt Count (130-400) K/uL MPV (7.2-11.7) fL Neut % (Auto) (50.0-75.0) % Lymph % (Auto) (20.0-40.0) % [place] % (Auto) (0.0-10.0) % Eos % (Auto) (0.0-4.0) % Baso % (Auto) (0.0-2.0) % Neut # (1.8-7.0) K/uL Lymph # (1.0-4.3) K/uL [place] # (0.0-0.8) K/uL Eos # (0.0-0.7) K/uL Baso # (0.0-0.2) K/uL Differential Comment PT 27.1 H (9.7-12.2) SECONDS INR 2.3 APTT 41 H (21-34) SECONDS Puncture Site Venous pCO2 (35-45) mm/Hg pO2 26 L (80-100) mm/Hg HCO3 (21-28) mmol/L ABG pH (7.35-7.45) ABG Total CO2 (22-28) mmol/L ABG O2 Saturation (95-98) % ABG Base Excess (-2.0-3.0) mmol/L ABG Hemoglobin (11.7-17.4) g/dL ABG Carboxyhemoglobin (0.5-1.5) % POC ABG HHb (Measured) (0.0-5.0) % ABG Methemoglobin (0.0-3.0) % Stan Test Na ABG Potassium (3.6-5.2) mmol/L VBG pH 7.44 H (7.32-7.43) VBG pCO2 42 (40-60) mmHg VBG HCO3 26.7 mmol/L VBG O2 Sat (Calc) 47.1 (40-65) % VBG Base Excess 3.9 H (0.0-2.0) mmol/L A-a O2 Difference mm/Hg Respiratory Index Hgb O2 Saturation (95.0-98.0) % Glucose (65-105) mg/dl Lactate (0.7-2.1) mmol/L Mechanical Rate FiO2 % Tidal Volume PEEP Crit Value Called To Crit Value Called By Crit Value Read Back Blood Gas Notified Time Sodium (132-148) mmol/L Potassium (3.6-5.2) mmol/L Chloride (98-107) mmol/L Carbon Dioxide (22-30) mmol/L Anion Gap (10-20) BUN (7-17) mg/dL Creatinine (0.7-1.2) MG/DL Est GFR ( Amer) Est GFR (Non-Af Amer) POC Glucose (mg/dL) 126 H (65-110) mg/dL Random Glucose (65-105) mg/dL Serum Osmolality (272-300) mosm/kg Lactic Acid (0.7-2.1) mmol/L Calcium (8.6-10.4) mg/dl Phosphorus (2.5-4.5) mg/dL Magnesium (1.6-2.3) mg/dL Arterial Blood Potassium (3.6-5.2) mmol/L Hep Bs Antigen (NEGATIVE) Hep Bs Antibody (NEGATIVE) Hep B Core IgM Ab (NEGATIVE) Hepatitis C Antibody (NEGATIVE) Blood Type Antibody Screen 12/30/16 12/30/16 12/30/16 Range/Units 21:15 21:12 21:04 WBC (4.8-10.8) K/uL RBC (3.80-5.20) Mil/uL Hgb (11.0-16.0) g/dL Hct (34.0-47.0) % MCV (81.0-99.0) fL MCH (27.0-31.0) pg MCHC (33.0-37.0) g/dL RDW (11.5-14.5) % Plt Count (130-400) K/uL MPV (7.2-11.7) fL Neut % (Auto) (50.0-75.0) % Lymph % (Auto) (20.0-40.0) % [place] % (Auto) (0.0-10.0) % Eos % (Auto) (0.0-4.0) % Baso % (Auto) (0.0-2.0) % Neut # (1.8-7.0) K/uL Lymph # (1.0-4.3) K/uL [place] # (0.0-0.8) K/uL Eos # (0.0-0.7) K/uL Baso # (0.0-0.2) K/uL Differential Comment PT (9.7-12.2) SECONDS INR APTT (21-34) SECONDS Puncture Site Rra pCO2 30 L (35-45) mm/Hg pO2 295 H (80-100) mm/Hg HCO3 26.9 (21-28) mmol/L ABG pH 7.52 H (7.35-7.45) ABG Total CO2 25.4 (22-28) mmol/L ABG O2 Saturation 100.4 H (95-98) % ABG Base Excess 2.4 (-2.0-3.0) mmol/L ABG Hemoglobin (11.7-17.4) g/dL ABG Carboxyhemoglobin (0.5-1.5) % POC ABG HHb (Measured) (0.0-5.0) % ABG Methemoglobin (0.0-3.0) % Stan Test Na ABG Potassium 4.2 (3.6-5.2) mmol/L VBG pH (7.32-7.43) VBG pCO2 (40-60) mmHg VBG HCO3 mmol/L VBG O2 Sat (Calc) (40-65) % VBG Base Excess (0.0-2.0) mmol/L A-a O2 Difference 381.0 mm/Hg Respiratory Index 1.3 Hgb O2 Saturation (95.0-98.0) % Glucose 99 (65-105) mg/dl Lactate 5.0 H* (0.7-2.1) mmol/L Mechanical Rate 14 FiO2 100.0 % Tidal Volume 500 PEEP 5 Crit Value Called To Mariangel carias Crit Value Called By Mandi Crit Value Read Back Y Blood Gas Notified Time 2114 Sodium 134.0 (132-148) mmol/L Potassium (3.6-5.2) mmol/L Chloride 99.0 (98-107) mmol/L Carbon Dioxide (22-30) mmol/L Anion Gap (10-20) BUN (7-17) mg/dL Creatinine (0.7-1.2) MG/DL Est GFR ( Amer) Est GFR (Non-Af Amer) POC Glucose (mg/dL) (65-110) mg/dL Random Glucose (65-105) mg/dL Serum Osmolality (272-300) mosm/kg Lactic Acid 4.9 H* (0.7-2.1) mmol/L Calcium (8.6-10.4) mg/dl Phosphorus (2.5-4.5) mg/dL Magnesium (1.6-2.3) mg/dL Arterial Blood Potassium 4.2 (3.6-5.2) mmol/L Hep Bs Antigen (NEGATIVE) Hep Bs Antibody (NEGATIVE) Hep B Core IgM Ab (NEGATIVE) Hepatitis C Antibody (NEGATIVE) Blood Type O POSITIVE Antibody Screen Negative 12/30/16 Range/Units 19:44 WBC (4.8-10.8) K/uL RBC (3.80-5.20) Mil/uL Hgb (11.0-16.0) g/dL Hct (34.0-47.0) % MCV (81.0-99.0) fL MCH (27.0-31.0) pg MCHC (33.0-37.0) g/dL RDW (11.5-14.5) % Plt Count (130-400) K/uL MPV (7.2-11.7) fL Neut % (Auto) (50.0-75.0) % Lymph % (Auto) (20.0-40.0) % [place] % (Auto) (0.0-10.0) % Eos % (Auto) (0.0-4.0) % Baso % (Auto) (0.0-2.0) % Neut # (1.8-7.0) K/uL Lymph # (1.0-4.3) K/uL [place] # (0.0-0.8) K/uL Eos # (0.0-0.7) K/uL Baso # (0.0-0.2) K/uL Differential Comment PT (9.7-12.2) SECONDS INR APTT (21-34) SECONDS Puncture Site pCO2 (35-45) mm/Hg pO2 (80-100) mm/Hg HCO3 (21-28) mmol/L ABG pH (7.35-7.45) ABG Total CO2 (22-28) mmol/L ABG O2 Saturation (95-98) % ABG Base Excess (-2.0-3.0) mmol/L ABG Hemoglobin (11.7-17.4) g/dL ABG Carboxyhemoglobin (0.5-1.5) % POC ABG HHb (Measured) (0.0-5.0) % ABG Methemoglobin (0.0-3.0) % Stan Test ABG Potassium (3.6-5.2) mmol/L VBG pH (7.32-7.43) VBG pCO2 (40-60) mmHg VBG HCO3 mmol/L VBG O2 Sat (Calc) (40-65) % VBG Base Excess (0.0-2.0) mmol/L A-a O2 Difference mm/Hg Respiratory Index Hgb O2 Saturation (95.0-98.0) % Glucose (65-105) mg/dl Lactate (0.7-2.1) mmol/L Mechanical Rate FiO2 % Tidal Volume PEEP Crit Value Called To Crit Value Called By Crit Value Read Back Blood Gas Notified Time Sodium 132 (132-148) mmol/L Potassium 4.6 (3.6-5.2) mmol/L Chloride 89 L (98-107) mmol/L Carbon Dioxide 25 (22-30) mmol/L Anion Gap 23 H (10-20) BUN 98 H (7-17) mg/dL Creatinine 7.4 H* (0.7-1.2) MG/DL Est GFR ( Amer) 7 Est GFR (Non-Af Amer) 6 POC Glucose (mg/dL) (65-110) mg/dL Random Glucose 94 (65-105) mg/dL Serum Osmolality (272-300) mosm/kg Lactic Acid (0.7-2.1) mmol/L Calcium 7.2 L (8.6-10.4) mg/dl Phosphorus 8.6 H (2.5-4.5) mg/dL Magnesium 2.9 H (1.6-2.3) mg/dL Arterial Blood Potassium (3.6-5.2) mmol/L Hep Bs Antigen (NEGATIVE) Hep Bs Antibody (NEGATIVE) Hep B Core IgM Ab (NEGATIVE) Hepatitis C Antibody (NEGATIVE) Blood Type Antibody Screen Laboratory Results - last 24 hr 12/30/16 12/30/16 12/30/16 19:44 21:04 21:12 WBC RBC Hgb Hct MCV MCH MCHC RDW Plt Count MPV Neut % (Auto) Lymph % (Auto) [place] % (Auto) Eos % (Auto) Baso % (Auto) Neut # Lymph # [place] # Eos # Baso # Differential Comment PT INR APTT Puncture Site Rra pCO2 30 L pO2 295 H HCO3 26.9 ABG pH 7.52 H ABG Total CO2 25.4 ABG O2 Saturation 100.4 H ABG Base Excess 2.4 ABG Hemoglobin ABG Carboxyhemoglobin POC ABG HHb (Measured) ABG Methemoglobin Stan Test Na ABG Potassium 4.2 VBG pH VBG pCO2 VBG HCO3 VBG O2 Sat (Calc) VBG Base Excess A-a O2 Difference 381.0 Respiratory Index 1.3 Hgb O2 Saturation Glucose 99 Lactate 5.0 H* Mechanical Rate 14 FiO2 100.0 Tidal Volume 500 PEEP 5 Crit Value Called To Mariangel carias Crit Value Called By Mandi Crit Value Read Back Y Blood Gas Notified Time 2114 Sodium 132 134.0 Potassium 4.6 Chloride 89 L 99.0 Carbon Dioxide 25 Anion Gap 23 H BUN 98 H Creatinine 7.4 H* Est GFR ( Amer) 7 Est GFR (Non-Af Amer) 6 POC Glucose (mg/dL) Random Glucose 94 Serum Osmolality Lactic Acid 4.9 H* Calcium 7.2 L Phosphorus 8.6 H Magnesium 2.9 H Arterial Blood Potassium 4.2 Hep Bs Antigen Hep Bs Antibody Hep B Core IgM Ab Hepatitis C Antibody Blood Type Antibody Screen 12/30/16 12/30/16 12/30/16 21:15 21:16 22:01 WBC RBC Hgb Hct MCV MCH MCHC RDW Plt Count MPV Neut % (Auto) Lymph % (Auto) [place] % (Auto) Eos % (Auto) Baso % (Auto) Neut # Lymph # [place] # Eos # Baso # Differential Comment PT 27.1 H INR 2.3 APTT 41 H Puncture Site Venous pCO2 pO2 26 L HCO3 ABG pH ABG Total CO2 ABG O2 Saturation ABG Base Excess ABG Hemoglobin ABG Carboxyhemoglobin POC ABG HHb (Measured) ABG Methemoglobin Stan Test Na ABG Potassium VBG pH 7.44 H VBG pCO2 42 VBG HCO3 26.7 VBG O2 Sat (Calc) 47.1 VBG Base Excess 3.9 H A-a O2 Difference Respiratory Index Hgb O2 Saturation Glucose Lactate Mechanical Rate FiO2 Tidal Volume PEEP Crit Value Called To Crit Value Called By Crit Value Read Back Blood Gas Notified Time Sodium Potassium Chloride Carbon Dioxide Anion Gap BUN Creatinine Est GFR ( Amer) Est GFR (Non-Af Amer) POC Glucose (mg/dL) Random Glucose Serum Osmolality Lactic Acid Calcium Phosphorus Magnesium Arterial Blood Potassium Hep Bs Antigen Hep Bs Antibody Hep B Core IgM Ab Hepatitis C Antibody Blood Type O POSITIVE Antibody Screen Negative 12/30/16 12/30/16 12/31/16 22:32 23:49 01:17 WBC RBC Hgb Hct MCV MCH MCHC RDW Plt Count MPV Neut % (Auto) Lymph % (Auto) [place] % (Auto) Eos % (Auto) Baso % (Auto) Neut # Lymph # [place] # Eos # Baso # Differential Comment PT INR APTT Puncture Site pCO2 pO2 HCO3 ABG pH ABG Total CO2 ABG O2 Saturation ABG Base Excess ABG Hemoglobin ABG Carboxyhemoglobin POC ABG HHb (Measured) ABG Methemoglobin Stan Test ABG Potassium VBG pH VBG pCO2 VBG HCO3 VBG O2 Sat (Calc) VBG Base Excess A-a O2 Difference Respiratory Index Hgb O2 Saturation Glucose Lactate Mechanical Rate FiO2 Tidal Volume PEEP Crit Value Called To Crit Value Called By Crit Value Read Back Blood Gas Notified Time Sodium 132 Potassium 4.6 Chloride 91 L Carbon Dioxide 22 Anion Gap 24 H BUN 92 H Creatinine 6.9 H Est GFR ( Amer) 7 Est GFR (Non-Af Amer) 6 POC Glucose (mg/dL) 126 H 111 H Random Glucose 81 Serum Osmolality Lactic Acid Calcium 6.9 L Phosphorus Magnesium Arterial Blood Potassium Hep Bs Antigen Hep Bs Antibody Hep B Core IgM Ab Hepatitis C Antibody Blood Type Antibody Screen 12/31/16 12/31/16 12/31/16 02:36 04:00 05:07 WBC RBC Hgb Hct MCV MCH MCHC RDW Plt Count MPV Neut % (Auto) Lymph % (Auto) [place] % (Auto) Eos % (Auto) Baso % (Auto) Neut # Lymph # [place] # Eos # Baso # Differential Comment PT INR APTT Puncture Site Rb pCO2 23 L pO2 95 HCO3 17.9 L ABG pH 7.40 ABG Total CO2 14.9 L ABG O2 Saturation 98.6 H ABG Base Excess -9.0 L ABG Hemoglobin 11.0 L ABG Carboxyhemoglobin 2.0 H POC ABG HHb (Measured) 1.4 ABG Methemoglobin 0.8 Stan Test Na ABG Potassium VBG pH VBG pCO2 VBG HCO3 VBG O2 Sat (Calc) VBG Base Excess A-a O2 Difference 161.0 Respiratory Index 1.7 Hgb O2 Saturation 95.8 Glucose Lactate Mechanical Rate 14 FiO2 40.0 Tidal Volume 500 PEEP 5 Crit Value Called To Crit Value Called By Crit Value Read Back Blood Gas Notified Time Sodium 135 135 Potassium 4.7 5.0 Chloride 92 L 92 L Carbon Dioxide 21 L 17 L Anion Gap 27 H 30 H BUN 92 H 79 H Creatinine 7.2 H 7.2 H Est GFR ( Amer) 7 7 Est GFR (Non-Af Amer) 6 6 POC Glucose (mg/dL) Random Glucose 72 26 L* D Serum Osmolality 312 H Lactic Acid Calcium 7.3 L 7.5 L Phosphorus 8.6 H Magnesium 2.9 H Arterial Blood Potassium Hep Bs Antigen Negative Hep Bs Antibody Negative Hep B Core IgM Ab Negative Hepatitis C Antibody Reactive H Blood Type Antibody Screen 12/31/16 12/31/16 12/31/16 06:35 06:42 07:12 WBC 20.8 H RBC 4.61 Hgb 10.8 L Hct 34.6 MCV 75.1 L MCH 23.5 L MCHC 31.3 L RDW 21.5 H Plt Count 277 MPV 8.5 Neut % (Auto) 81.5 H Lymph % (Auto) 11.5 L [place] % (Auto) 6.6 Eos % (Auto) 0.1 Baso % (Auto) 0.3 Neut # 16.9 H Lymph # 2.4 [place] # 1.4 H Eos # 0.0 Baso # 0.1 Differential Comment PT INR APTT Puncture Site pCO2 pO2 HCO3 ABG pH ABG Total CO2 ABG O2 Saturation ABG Base Excess ABG Hemoglobin ABG Carboxyhemoglobin POC ABG HHb (Measured) ABG Methemoglobin Stan Test ABG Potassium VBG pH VBG pCO2 VBG HCO3 VBG O2 Sat (Calc) VBG Base Excess A-a O2 Difference Respiratory Index Hgb O2 Saturation Glucose Lactate Mechanical Rate FiO2 Tidal Volume PEEP Crit Value Called To Crit Value Called By Crit Value Read Back Blood Gas Notified Time Sodium Potassium Chloride Carbon Dioxide Anion Gap BUN Creatinine Est GFR ( Amer) Est GFR (Non-Af Amer) POC Glucose (mg/dL) 22 L* 214 H 96 Random Glucose Serum Osmolality Lactic Acid Calcium Phosphorus Magnesium Arterial Blood Potassium Hep Bs Antigen Hep Bs Antibody Hep B Core IgM Ab Hepatitis C Antibody Blood Type Antibody Screen 12/31/16 11:43 WBC RBC Hgb Hct MCV MCH MCHC RDW Plt Count MPV Neut % (Auto) Lymph % (Auto) [place] % (Auto) Eos % (Auto) Baso % (Auto) Neut # Lymph # [place] # Eos # Baso # Differential Comment PT INR APTT Puncture Site pCO2 pO2 HCO3 ABG pH ABG Total CO2 ABG O2 Saturation ABG Base Excess ABG Hemoglobin ABG Carboxyhemoglobin POC ABG HHb (Measured) ABG Methemoglobin Stan Test ABG Potassium VBG pH VBG pCO2 VBG HCO3 VBG O2 Sat (Calc) VBG Base Excess A-a O2 Difference Respiratory Index Hgb O2 Saturation Glucose Lactate Mechanical Rate FiO2 Tidal Volume PEEP Crit Value Called To Crit Value Called By Crit Value Read Back Blood Gas Notified Time Sodium Potassium Chloride Carbon Dioxide Anion Gap BUN Creatinine Est GFR ( Amer) Est GFR (Non-Af Amer) POC Glucose (mg/dL) 28 L* Random Glucose Serum Osmolality Lactic Acid Calcium Phosphorus Magnesium Arterial Blood Potassium Hep Bs Antigen Hep Bs Antibody Hep B Core IgM Ab Hepatitis C Antibody Blood Type Antibody Screen Fingerstick Blood Sugar Results: 214 Assessment/Plan - Assessment and Plan (Free Text) Assessment: Patient was seen and examined at examined. Patient is currently intubated. PVRC : FiO2 40%, PEEP 5, RR 14, Tvolume 500. Patient admitted for septic shock / to wound infection of bilateral legs due to CABG 08/31, respiratory failure, and renal failure. Currently maxed out on vasopressin and levophed, started on phenylephrine. Plan: Neuro: Intubated. Hx of Parkinson's Disease CV: Hx HTN Hx CABG 08/31 F/u ECHO Dr. Patel consulted - help appreciated Code Blue 12/31/16 14:52: Patient was given 1 amp of sodium bicarb, regained pulse and rhythm. Current vitals: 129/84, RR 14, HR 77, continued on ventilation. Patient is currently maxed out on vasopressin and levophed, started on phenylephrine, sodium bicarb drip and D10 drip. Pulm: Intubated due to labored breathing Current vent settings: PVRC: FiO2 40%, PEEP 5, RR 14, Tvolume 500. Endo: Hypoglycemic - Currently on D10 drip. Accuchecks Q1H Monitor Renal: Acute Renal Failure - Oliguric - Anasarca - Upon admission: BUN/ CRE: 30/2.4. Currently BUN/ CRE 79/ 7.2. Dr. Paredes consulted. Dr. Sargent is covering. - Patient was unable to tolerate initial HD due to hypotension. - Patient started on slow dialysis IE SLED for duration 6-7 hours. Patient was on hour 2 when [facility] was called. Heme: PT: 27.1, INR 2.3, PTT 41 Coagulopathy - Oozing from bilateral wound vac sites. DDVAP was given ID: Septic Shock 2/2 Bilateral lower extremity wounds - Wound vac in place -Dr. Luther consulted- no further surgical intervention at this time. -Currently on Meropenem and Vancomycin and Micafungin. -Dr. Martinez was consulted- help appreciated -F/U blood, wound cultures Prophylaxis: GI PPX: Protonix 40mg IVP daily DVT: SCDs and VTE contraindicated due to wound vac placement on BL legs Palliative Care consulted- family is discussing code status. Family leaning towards DNR/DNI - pending final decision. Prognosis poor. DW Chaz Garg DO, PGY-1
[2016-12-31] MEDS ORDERED: Micafungin 100 MG in Sodium Chloride 0.9% 100 ML IV SCH (14:00)
--- NOTE | 2016-12-31 14:11 | CP.PCM.CON ---
History of Present Illness - History of Present Illness History of Present Illness: Palliative consult for goals of care discussion Requested by Chaz GONCALVES Patient is a 56 yo AA woman admitted from [facility] with acute respiratory distress and hypoglicemia. At the [facility] detected blood sugar level was 45, what improved after the D 50% IV bolus, but mental status remained altered. In ED patient become very bradicardic and hypotensive needing emergent intubation and MV support. Patient was found to be in hyperkalemia and acidosis what was corrected. After insertion of Segura cath, only 40 cc of urine came out. The BUN 79 and Oil Heater Operator 7.2 suggested acute renal failure. Patient was inserted the temporal AV catheter and HD was initiated. Heavy loaded life support measures are applied to support this patient's life. PMH: S/P CABG in 08/2016, graft from both LEs, surgical wound eviscerated and wound vac applied, COPD, HTN, Parkinson's, sleep apnea Soc. Hx: single, lives at home with son, has two more daughters PMH: Unknown Review of Systems - Review of Systems Systems not reviewed;Unavailable: Intubated Past Patient History - Past Medical History & Family History Past Medical History?: Yes - Past Social History Smoking Status: Unknown If Ever Smoked - CARDIAC Hx Hypertension: Yes - PULMONARY Hx Chronic Obstructive Pulmonary Disease (COPD): Yes Hx Sleep Apnea: Yes - NEUROLOGICAL Hx Parkinson's Disease: Yes - HEENT Hx Glaucoma: Yes - RENAL Hx Chronic Kidney Disease: No - ENDOCRINE/METABOLIC Hx Diabetes Mellitus Type 2: Yes - HEMATOLOGICAL/ONCOLOGICAL Hx Blood Disorders: Yes Hx Blood Transfusions: Yes - INTEGUMENTARY Hx Dermatological Problems: No - MUSCULOSKELETAL/RHEUMATOLOGICAL Hx Musculoskeletal Disorders: No - GASTROINTESTINAL Hx Gastrointestinal Disorders: No - GENITOURINARY/GYNECOLOGICAL Hx Genitourinary Disorders: No - PSYCHIATRIC Hx Anxiety: Yes Hx Substance Use: No - SURGICAL HISTORY Hx Coronary Artery Bypass Graft: Yes - ANESTHESIA Hx Anesthesia: Yes Hx Anesthesia Reactions: No Hx Malignant Hyperthermia: No Has any member of the family had a problem w/ anesthesia?: No Meds Allergies/Adverse Reactions: Allergies Allergy/AdvReac Type Severity Reaction Status Date / Time Sulfa (Sulfonamide Allergy Verified 12/30/16 16:38 Antibiotics) - Medications Medications: Current Medications Sodium Bicarbonate 150 meq/ (Dextrose) 1,000 mls @ 100 mls/hr IV .Q10H GLADIS Vancomycin HCl 1,750 mg/ (Sodium Chloride) 250 mls @ 166.6 mls/hr IVPB Q72H GLADIS Vasopressin 40 units/ Sodium (Chloride) 40 mls @ 2.4 mls/hr IV .[id number] GLADIS PRN Reason: 0.04 UNITS/MIN Last Admin: 12/31/16 08:42 Dose: 2.4 mls/hr Fentanyl Citrate 2,500 mcg/ (Sodium Chloride) 250 mls @ 113.39 mls/hr IV .Q2H13M PRN; Protocol; 10 MCG/KG/HR PRN Reason: FOLLOW TITRATION PROTOCOL Norepinephrine Bitartrate 16 (mg/ Sodium Chloride) 516 mls @ 9.67 mls/hr IV .Q24H PRN; Protocol; 5 MCG/MIN PRN Reason: TITRATE PER MD ORDER Last Admin: 12/31/16 13:11 Dose: 48.37 mls/hr Meropenem 500 mg/ Sodium (Chloride) 100 mls @ 100 mls/hr IVPB Q8H [facility] Micafungin Sodium 100 mg/ (Sodium Chloride) 100 mls @ 100 mls/hr IV Q24H [facility] Last Admin: 12/31/16 13:55 Dose: 100 mls/hr Phenylephrine HCl 30 mg/ (Sodium Chloride) 253 mls @ 10.12 mls/hr IV .Q24H PRN ; Protocol; 20 MCG/MIN PRN Reason: TITRATE PER MD ORDER Last Titration: 12/31/16 13:51 Dose: 100 mcg/min Pantoprazole Sodium (Protonix Inj) 40 mg IVP DAILY [facility] Physical Exam - Constitutional Appears: In Acute Distress, Chronically Ill - Head Exam Head Exam: ATRAUMATIC, NORMAL INSPECTION, NORMOCEPHALIC - Eye Exam Eye Exam: Periorbital swelling Pupil Exam: NORMAL ACCOMODATION Additional comments: sedated - ENT Exam ENT Exam: Mucous Membranes Dry - Neck Exam Neck exam: Positive for: Normal Inspection Additional comments: ET tube - Respiratory Exam Additional comments: on MV - Cardiovascular Exam Cardiovascular Exam: Bradycardia - GI/Abdominal Exam GI & Abdominal Exam: Distended, Firm, Hypoactive Bowel Sounds - Rectal Exam Rectal Exam: Deferred - Exam Additional comments: Segura cath - Extremities Exam Extremities exam: Positive for: pedal edema - Back Exam Back exam: NORMAL INSPECTION - Neurological Exam Neurological exam: Motor Sensory Deficit - Psychiatric Exam Psychiatric exam: Flat Affect - Skin Skin Exam: Pallor Results - Vital Signs Recent Vital Signs: Last Vital Signs Temp 98.5 F 12/31/16 12:00 Pulse 80 12/31/16 13:20 Resp 17 12/31/16 13:20 BP 81/56 L 12/31/16 13:20 Pulse Ox 97 12/31/16 13:20 - Labs Result Diagrams: 12/31/16 06:35 12/31/16 04:00 Labs: Laboratory Results - last 24 hr 12/30/16 12/30/16 12/30/16 19:44 21:04 21:12 WBC RBC Hgb Hct MCV MCH MCHC RDW Plt Count MPV Neut % (Auto) Lymph % (Auto) [place] % (Auto) Eos % (Auto) Baso % (Auto) Neut # Lymph # [place] # Eos # Baso # Differential Comment PT INR APTT Puncture Site Rra pCO2 30 L pO2 295 H HCO3 26.9 ABG pH 7.52 H ABG Total CO2 25.4 ABG O2 Saturation 100.4 H ABG Base Excess 2.4 ABG Hemoglobin ABG Carboxyhemoglobin POC ABG HHb (Measured) ABG Methemoglobin Stan Test Na ABG Potassium 4.2 VBG pH VBG pCO2 VBG HCO3 VBG O2 Sat (Calc) VBG Base Excess A-a O2 Difference 381.0 Respiratory Index 1.3 Hgb O2 Saturation Glucose 99 Lactate 5.0 H* Mechanical Rate 14 FiO2 100.0 Tidal Volume 500 PEEP 5 Crit Value Called To Mariangel carias Crit Value Called By Mandi Crit Value Read Back Y Blood Gas Notified Time 2114 Sodium 132 134.0 Potassium 4.6 Chloride 89 L 99.0 Carbon Dioxide 25 Anion Gap 23 H BUN 98 H Creatinine 7.4 H* Est GFR ( Amer) 7 Est GFR (Non-Af Amer) 6 POC Glucose (mg/dL) Random Glucose 94 Serum Osmolality Lactic Acid 4.9 H* Calcium 7.2 L Phosphorus 8.6 H Magnesium 2.9 H Arterial Blood Potassium 4.2 Hep Bs Antigen Hep Bs Antibody Hep B Core IgM Ab Hepatitis C Antibody Blood Type Antibody Screen 12/30/16 12/30/16 12/30/16 21:15 21:16 22:01 WBC RBC Hgb Hct MCV MCH MCHC RDW Plt Count MPV Neut % (Auto) Lymph % (Auto) [place] % (Auto) Eos % (Auto) Baso % (Auto) Neut # Lymph # [place] # Eos # Baso # Differential Comment PT 27.1 H INR 2.3 APTT 41 H Puncture Site Venous pCO2 pO2 26 L HCO3 ABG pH ABG Total CO2 ABG O2 Saturation ABG Base Excess ABG Hemoglobin ABG Carboxyhemoglobin POC ABG HHb (Measured) ABG Methemoglobin Stan Test Na ABG Potassium VBG pH 7.44 H VBG pCO2 42 VBG HCO3 26.7 VBG O2 Sat (Calc) 47.1 VBG Base Excess 3.9 H A-a O2 Difference Respiratory Index Hgb O2 Saturation Glucose Lactate Mechanical Rate FiO2 Tidal Volume PEEP Crit Value Called To Crit Value Called By Crit Value Read Back Blood Gas Notified Time Sodium Potassium Chloride Carbon Dioxide Anion Gap BUN Creatinine Est GFR ( Amer) Est GFR (Non-Af Amer) POC Glucose (mg/dL) Random Glucose Serum Osmolality Lactic Acid Calcium Phosphorus Magnesium Arterial Blood Potassium Hep Bs Antigen Hep Bs Antibody Hep B Core IgM Ab Hepatitis C Antibody Blood Type O POSITIVE Antibody Screen Negative 12/30/16 12/30/16 12/31/16 22:32 23:49 01:17 WBC RBC Hgb Hct MCV MCH MCHC RDW Plt Count MPV Neut % (Auto) Lymph % (Auto) [place] % (Auto) Eos % (Auto) Baso % (Auto) Neut # Lymph # [place] # Eos # Baso # Differential Comment PT INR APTT Puncture Site pCO2 pO2 HCO3 ABG pH ABG Total CO2 ABG O2 Saturation ABG Base Excess ABG Hemoglobin ABG Carboxyhemoglobin POC ABG HHb (Measured) ABG Methemoglobin Stan Test ABG Potassium VBG pH VBG pCO2 VBG HCO3 VBG O2 Sat (Calc) VBG Base Excess A-a O2 Difference Respiratory Index Hgb O2 Saturation Glucose Lactate Mechanical Rate FiO2 Tidal Volume PEEP Crit Value Called To Crit Value Called By Crit Value Read Back Blood Gas Notified Time Sodium 132 Potassium 4.6 Chloride 91 L Carbon Dioxide 22 Anion Gap 24 H BUN 92 H Creatinine 6.9 H Est GFR ( Amer) 7 Est GFR (Non-Af Amer) 6 POC Glucose (mg/dL) 126 H 111 H Random Glucose 81 Serum Osmolality Lactic Acid Calcium 6.9 L Phosphorus Magnesium Arterial Blood Potassium Hep Bs Antigen Hep Bs Antibody Hep B Core IgM Ab Hepatitis C Antibody Blood Type Antibody Screen 12/31/16 12/31/16 12/31/16 02:36 04:00 05:07 WBC RBC Hgb Hct MCV MCH MCHC RDW Plt Count MPV Neut % (Auto) Lymph % (Auto) [place] % (Auto) Eos % (Auto) Baso % (Auto) Neut # Lymph # [place] # Eos # Baso # Differential Comment PT INR APTT Puncture Site Rb pCO2 23 L pO2 95 HCO3 17.9 L ABG pH 7.40 ABG Total CO2 14.9 L ABG O2 Saturation 98.6 H ABG Base Excess -9.0 L ABG Hemoglobin 11.0 L ABG Carboxyhemoglobin 2.0 H POC ABG HHb (Measured) 1.4 ABG Methemoglobin 0.8 Stan Test Na ABG Potassium VBG pH VBG pCO2 VBG HCO3 VBG O2 Sat (Calc) VBG Base Excess A-a O2 Difference 161.0 Respiratory Index 1.7 Hgb O2 Saturation 95.8 Glucose Lactate Mechanical Rate 14 FiO2 40.0 Tidal Volume 500 PEEP 5 Crit Value Called To Crit Value Called By Crit Value Read Back Blood Gas Notified Time Sodium 135 135 Potassium 4.7 5.0 Chloride 92 L 92 L Carbon Dioxide 21 L 17 L Anion Gap 27 H 30 H BUN 92 H 79 H Creatinine 7.2 H 7.2 H Est GFR ( Amer) 7 7 Est GFR (Non-Af Amer) 6 6 POC Glucose (mg/dL) Random Glucose 72 26 L* D Serum Osmolality 312 H Lactic Acid Calcium 7.3 L 7.5 L Phosphorus 8.6 H Magnesium 2.9 H Arterial Blood Potassium Hep Bs Antigen Negative Hep Bs Antibody Negative Hep B Core IgM Ab Negative Hepatitis C Antibody Reactive H Blood Type Antibody Screen 12/31/16 12/31/16 12/31/16 06:35 06:42 07:12 WBC 20.8 H RBC 4.61 Hgb 10.8 L Hct 34.6 MCV 75.1 L MCH 23.5 L MCHC 31.3 L RDW 21.5 H Plt Count 277 MPV 8.5 Neut % (Auto) 81.5 H Lymph % (Auto) 11.5 L [place] % (Auto) 6.6 Eos % (Auto) 0.1 Baso % (Auto) 0.3 Neut # 16.9 H Lymph # 2.4 [place] # 1.4 H Eos # 0.0 Baso # 0.1 Differential Comment PT INR APTT Puncture Site pCO2 pO2 HCO3 ABG pH ABG Total CO2 ABG O2 Saturation ABG Base Excess ABG Hemoglobin ABG Carboxyhemoglobin POC ABG HHb (Measured) ABG Methemoglobin Stan Test ABG Potassium VBG pH VBG pCO2 VBG HCO3 VBG O2 Sat (Calc) VBG Base Excess A-a O2 Difference Respiratory Index Hgb O2 Saturation Glucose Lactate Mechanical Rate FiO2 Tidal Volume PEEP Crit Value Called To Crit Value Called By Crit Value Read Back Blood Gas Notified Time Sodium Potassium Chloride Carbon Dioxide Anion Gap BUN Creatinine Est GFR ( Amer) Est GFR (Non-Af Amer) POC Glucose (mg/dL) 22 L* 214 H 96 Random Glucose Serum Osmolality Lactic Acid Calcium Phosphorus Magnesium Arterial Blood Potassium Hep Bs Antigen Hep Bs Antibody Hep B Core IgM Ab Hepatitis C Antibody Blood Type Antibody Screen 12/31/16 11:43 WBC RBC Hgb Hct MCV MCH MCHC RDW Plt Count MPV Neut % (Auto) Lymph % (Auto) [place] % (Auto) Eos % (Auto) Baso % (Auto) Neut # Lymph # [place] # Eos # Baso # Differential Comment PT INR APTT Puncture Site pCO2 pO2 HCO3 ABG pH ABG Total CO2 ABG O2 Saturation ABG Base Excess ABG Hemoglobin ABG Carboxyhemoglobin POC ABG HHb (Measured) ABG Methemoglobin Stan Test ABG Potassium VBG pH VBG pCO2 VBG HCO3 VBG O2 Sat (Calc) VBG Base Excess A-a O2 Difference Respiratory Index Hgb O2 Saturation Glucose Lactate Mechanical Rate FiO2 Tidal Volume PEEP Crit Value Called To Crit Value Called By Crit Value Read Back Blood Gas Notified Time Sodium Potassium Chloride Carbon Dioxide Anion Gap BUN Creatinine Est GFR ( Amer) Est GFR (Non-Af Amer) POC Glucose (mg/dL) 28 L* Random Glucose Serum Osmolality Lactic Acid Calcium Phosphorus Magnesium Arterial Blood Potassium Hep Bs Antigen Hep Bs Antibody Hep B Core IgM Ab Hepatitis C Antibody Blood Type Antibody Screen Assessment & Plan - Assessment and Plan (Free Text) Assessment: Palliative consult Code status Full Code. No advance directive on chart. PPS 10%. ROS unable to obtain due to intubation I reviewed medical records, all diagnostic studies, examined patient in the bed , discussed her presentation with patient's son Gato Lees ) Patient is intubated on Fentanyl drip, unresponsive to stimuli. There is general anasarca including the face and eyelids. The HD is in progress. BP 120/ 78 sustained, HR 69. WBC 20.8 from 16.1 on admission, Hb 10.8 down form 11.6. Patient is on three IV antibiotics , Epinephrine IV, Amidate IV, and IVF, besides other measures. As per son Gato, patient has been sick for long time, but her drastic decline was seen after the CABG Sx. As per son, patient stopped talking while a GRACE, stopped eating and " looked like if she was tired of being sick". Gato had many questions about the life sustaining measures applied in care of his mother and i answered those to the satisfaction. Gato also suggested, despite the fact that his mother lived with him, he prefers the oldest sister Landy [phone] is being called for medical decisions. Impression * This is severely ill patient with multi organ failure. I am afraid that prognosis remains very poor. * Anasarca * Full life support applied * Anuria * Debility * Dyspnea * Wishes for end of life care are not known Suggestion * Palliative care will fallow up with patient's progress and maintain contact with close family for adjusting goals of care * Landy, the oldest daughter should be the main personnel scheduler . [phone] Thank you for consulting Palliative care
--- NOTE | 2016-12-31 14:53 | CP.PCM.CON ---
History of Present Illness - History of Present Illness History of Present Illness: I was asked to see patient by Dr. Brannon. Patient is a 56 year old female with a PMH HTN, CAD s/p CABG who presents with hypotension and septic shock. The history is obtained by the son and family, who are present outside the patient's room. The patient [place] [facility] [place] Her postoperative course has been notable for progressive lower extremity wound infection. The patient was admitted to [facility] for management. The patient was found to be hypotensive, and in renal failure. She is currently in ICU, intubated and on multiple pressors. Review of Systems - Review of Systems Systems not reviewed;Unavailable: Intubated Past Patient History - Past Medical History & Family History Past Medical History?: Yes - Past Social History Smoking Status: Unknown If Ever Smoked - CARDIAC Hx Hypertension: Yes - PULMONARY Hx Chronic Obstructive Pulmonary Disease (COPD): Yes Hx Sleep Apnea: Yes - NEUROLOGICAL Hx Parkinson's Disease: Yes - HEENT Hx Glaucoma: Yes - RENAL Hx Chronic Kidney Disease: No - ENDOCRINE/METABOLIC Hx Diabetes Mellitus Type 2: Yes - HEMATOLOGICAL/ONCOLOGICAL Hx Blood Disorders: Yes Hx Blood Transfusions: Yes - INTEGUMENTARY Hx Dermatological Problems: No - MUSCULOSKELETAL/RHEUMATOLOGICAL Hx Musculoskeletal Disorders: No - GASTROINTESTINAL Hx Gastrointestinal Disorders: No - GENITOURINARY/GYNECOLOGICAL Hx Genitourinary Disorders: No - PSYCHIATRIC Hx Anxiety: Yes Hx Substance Use: No - SURGICAL HISTORY Hx Coronary Artery Bypass Graft: Yes - ANESTHESIA Hx Anesthesia: Yes Hx Anesthesia Reactions: No Hx Malignant Hyperthermia: No Has any member of the family had a problem w/ anesthesia?: No Meds Allergies/Adverse Reactions: Allergies Allergy/AdvReac Type Severity Reaction Status Date / Time Sulfa (Sulfonamide Allergy Verified 12/30/16 16:38 Antibiotics) - Medications Medications: Current Medications Sodium Bicarbonate 150 meq/ (Dextrose) 1,000 mls @ 100 mls/hr IV .Q10H GLADIS Vancomycin HCl 1,750 mg/ (Sodium Chloride) 250 mls @ 166.6 mls/hr IVPB Q72H GLADIS Vasopressin 40 units/ Sodium (Chloride) 40 mls @ 2.4 mls/hr IV .[id number] GLADIS PRN Reason: 0.04 UNITS/MIN Last Admin: 12/31/16 08:42 Dose: 2.4 mls/hr Fentanyl Citrate 2,500 mcg/ (Sodium Chloride) 250 mls @ 113.39 mls/hr IV .Q2H13M PRN; Protocol; 10 MCG/KG/HR PRN Reason: FOLLOW TITRATION PROTOCOL Norepinephrine Bitartrate 16 (mg/ Sodium Chloride) 516 mls @ 9.67 mls/hr IV .Q24H PRN; Protocol; 5 MCG/MIN PRN Reason: TITRATE PER MD ORDER Last Admin: 12/31/16 13:11 Dose: 48.37 mls/hr Meropenem 500 mg/ Sodium (Chloride) 100 mls @ 100 mls/hr IVPB Q8H GLADIS Micafungin Sodium 100 mg/ (Sodium Chloride) 100 mls @ 100 mls/hr IV Q24H GLADIS Last Admin: 12/31/16 13:55 Dose: 100 mls/hr Phenylephrine HCl 30 mg/ (Sodium Chloride) 253 mls @ 10.12 mls/hr IV .Q24H PRN ; Protocol; 20 MCG/MIN PRN Reason: TITRATE PER MD ORDER Last Titration: 12/31/16 13:51 Dose: 100 mcg/min Pantoprazole Sodium (Protonix Inj) 40 mg IVP DAILY GLADIS Physical Exam - Constitutional Appears: Toxic - Head Exam Head Exam: NORMAL INSPECTION - Eye Exam Eye Exam: Conjunctival injection, Periorbital swelling - ENT Exam ENT Exam: Mucous Membranes Moist - Neck Exam Neck exam: Negative for: Thyromegaly - Respiratory Exam Respiratory Exam: Decreased Breath Sounds - Cardiovascular Exam Cardiovascular Exam: REGULAR RHYTHM - GI/Abdominal Exam GI & Abdominal Exam: Normal Bowel Sounds - Rectal Exam Rectal Exam: Deferred - Extremities Exam Extremities exam: Positive for: pedal edema - Neurological Exam Additional comments: obtunded - Skin Skin Exam: Normal Color Results - Vital Signs Recent Vital Signs: Last Vital Signs Temp 98.5 F 12/31/16 12:00 Pulse 80 12/31/16 13:20 Resp 17 12/31/16 13:20 BP 81/56 L 12/31/16 13:20 Pulse Ox 97 12/31/16 13:20 - Labs Result Diagrams: 12/31/16 06:35 12/31/16 04:00 Labs: Laboratory Results - last 24 hr 12/30/16 12/30/16 12/30/16 19:44 21:04 21:12 WBC RBC Hgb Hct MCV MCH MCHC RDW Plt Count MPV Neut % (Auto) Lymph % (Auto) [place] % (Auto) Eos % (Auto) Baso % (Auto) Neut # Lymph # [place] # Eos # Baso # Differential Comment PT INR APTT Puncture Site Rra pCO2 30 L pO2 295 H HCO3 26.9 ABG pH 7.52 H ABG Total CO2 25.4 ABG O2 Saturation 100.4 H ABG Base Excess 2.4 ABG Hemoglobin ABG Carboxyhemoglobin POC ABG HHb (Measured) ABG Methemoglobin Stan Test Na ABG Potassium 4.2 VBG pH VBG pCO2 VBG HCO3 VBG O2 Sat (Calc) VBG Base Excess A-a O2 Difference 381.0 Respiratory Index 1.3 Hgb O2 Saturation Glucose 99 Lactate 5.0 H* Mechanical Rate 14 FiO2 100.0 Tidal Volume 500 PEEP 5 Crit Value Called To Mariangel carias Crit Value Called By Mandi Crit Value Read Back Y Blood Gas Notified Time 2114 Sodium 132 134.0 Potassium 4.6 Chloride 89 L 99.0 Carbon Dioxide 25 Anion Gap 23 H BUN 98 H Creatinine 7.4 H* Est GFR ( Amer) 7 Est GFR (Non-Af Amer) 6 POC Glucose (mg/dL) Random Glucose 94 Serum Osmolality Lactic Acid 4.9 H* Calcium 7.2 L Phosphorus 8.6 H Magnesium 2.9 H Arterial Blood Potassium 4.2 Hep Bs Antigen Hep Bs Antibody Hep B Core IgM Ab Hepatitis C Antibody Blood Type Antibody Screen 12/30/16 12/30/16 12/30/16 21:15 21:16 22:01 WBC RBC Hgb Hct MCV MCH MCHC RDW Plt Count MPV Neut % (Auto) Lymph % (Auto) [place] % (Auto) Eos % (Auto) Baso % (Auto) Neut # Lymph # [place] # Eos # Baso # Differential Comment PT 27.1 H INR 2.3 APTT 41 H Puncture Site Venous pCO2 pO2 26 L HCO3 ABG pH ABG Total CO2 ABG O2 Saturation ABG Base Excess ABG Hemoglobin ABG Carboxyhemoglobin POC ABG HHb (Measured) ABG Methemoglobin Stan Test Na ABG Potassium VBG pH 7.44 H VBG pCO2 42 VBG HCO3 26.7 VBG O2 Sat (Calc) 47.1 VBG Base Excess 3.9 H A-a O2 Difference Respiratory Index Hgb O2 Saturation Glucose Lactate Mechanical Rate FiO2 Tidal Volume PEEP Crit Value Called To Crit Value Called By Crit Value Read Back Blood Gas Notified Time Sodium Potassium Chloride Carbon Dioxide Anion Gap BUN Creatinine Est GFR ( Amer) Est GFR (Non-Af Amer) POC Glucose (mg/dL) Random Glucose Serum Osmolality Lactic Acid Calcium Phosphorus Magnesium Arterial Blood Potassium Hep Bs Antigen Hep Bs Antibody Hep B Core IgM Ab Hepatitis C Antibody Blood Type O POSITIVE Antibody Screen Negative 12/30/16 12/30/16 12/31/16 22:32 23:49 01:17 WBC RBC Hgb Hct MCV MCH MCHC RDW Plt Count MPV Neut % (Auto) Lymph % (Auto) [place] % (Auto) Eos % (Auto) Baso % (Auto) Neut # Lymph # [place] # Eos # Baso # Differential Comment PT INR APTT Puncture Site pCO2 pO2 HCO3 ABG pH ABG Total CO2 ABG O2 Saturation ABG Base Excess ABG Hemoglobin ABG Carboxyhemoglobin POC ABG HHb (Measured) ABG Methemoglobin Stan Test ABG Potassium VBG pH VBG pCO2 VBG HCO3 VBG O2 Sat (Calc) VBG Base Excess A-a O2 Difference Respiratory Index Hgb O2 Saturation Glucose Lactate Mechanical Rate FiO2 Tidal Volume PEEP Crit Value Called To Crit Value Called By Crit Value Read Back Blood Gas Notified Time Sodium 132 Potassium 4.6 Chloride 91 L Carbon Dioxide 22 Anion Gap 24 H BUN 92 H Creatinine 6.9 H Est GFR ( Amer) 7 Est GFR (Non-Af Amer) 6 POC Glucose (mg/dL) 126 H 111 H Random Glucose 81 Serum Osmolality Lactic Acid Calcium 6.9 L Phosphorus Magnesium Arterial Blood Potassium Hep Bs Antigen Hep Bs Antibody Hep B Core IgM Ab Hepatitis C Antibody Blood Type Antibody Screen 12/31/16 12/31/16 12/31/16 02:36 04:00 05:07 WBC RBC Hgb Hct MCV MCH MCHC RDW Plt Count MPV Neut % (Auto) Lymph % (Auto) [place] % (Auto) Eos % (Auto) Baso % (Auto) Neut # Lymph # [place] # Eos # Baso # Differential Comment PT INR APTT Puncture Site Rb pCO2 23 L pO2 95 HCO3 17.9 L ABG pH 7.40 ABG Total CO2 14.9 L ABG O2 Saturation 98.6 H ABG Base Excess -9.0 L ABG Hemoglobin 11.0 L ABG Carboxyhemoglobin 2.0 H POC ABG HHb (Measured) 1.4 ABG Methemoglobin 0.8 Stan Test Na ABG Potassium VBG pH VBG pCO2 VBG HCO3 VBG O2 Sat (Calc) VBG Base Excess A-a O2 Difference 161.0 Respiratory Index 1.7 Hgb O2 Saturation 95.8 Glucose Lactate Mechanical Rate 14 FiO2 40.0 Tidal Volume 500 PEEP 5 Crit Value Called To Crit Value Called By Crit Value Read Back Blood Gas Notified Time Sodium 135 135 Potassium 4.7 5.0 Chloride 92 L 92 L Carbon Dioxide 21 L 17 L Anion Gap 27 H 30 H BUN 92 H 79 H Creatinine 7.2 H 7.2 H Est GFR ( Amer) 7 7 Est GFR (Non-Af Amer) 6 6 POC Glucose (mg/dL) Random Glucose 72 26 L* D Serum Osmolality 312 H Lactic Acid Calcium 7.3 L 7.5 L Phosphorus 8.6 H Magnesium 2.9 H Arterial Blood Potassium Hep Bs Antigen Negative Hep Bs Antibody Negative Hep B Core IgM Ab Negative Hepatitis C Antibody Reactive H Blood Type Antibody Screen 12/31/16 12/31/16 12/31/16 06:35 06:42 07:12 WBC 20.8 H RBC 4.61 Hgb 10.8 L Hct 34.6 MCV 75.1 L MCH 23.5 L MCHC 31.3 L RDW 21.5 H Plt Count 277 MPV 8.5 Neut % (Auto) 81.5 H Lymph % (Auto) 11.[address] % (Auto) 6.6 Eos % (Auto) 0.1 Baso % (Auto) 0.3 Neut # 16.9 H Lymph # 2.4 [place] # 1.4 H Eos # 0.0 Baso # 0.1 Differential Comment PT INR APTT Puncture Site pCO2 pO2 HCO3 ABG pH ABG Total CO2 ABG O2 Saturation ABG Base Excess ABG Hemoglobin ABG Carboxyhemoglobin POC ABG HHb (Measured) ABG Methemoglobin Stan Test ABG Potassium VBG pH VBG pCO2 VBG HCO3 VBG O2 Sat (Calc) VBG Base Excess A-a O2 Difference Respiratory Index Hgb O2 Saturation Glucose Lactate Mechanical Rate FiO2 Tidal Volume PEEP Crit Value Called To Crit Value Called By Crit Value Read Back Blood Gas Notified Time Sodium Potassium Chloride Carbon Dioxide Anion Gap BUN Creatinine Est GFR ( Amer) Est GFR (Non-Af Amer) POC Glucose (mg/dL) 22 L* 214 H 96 Random Glucose Serum Osmolality Lactic Acid Calcium Phosphorus Magnesium Arterial Blood Potassium Hep Bs Antigen Hep Bs Antibody Hep B Core IgM Ab Hepatitis C Antibody Blood Type Antibody Screen 12/31/16 12/31/16 12/31/16 11:43 12:41 13:57 WBC RBC Hgb Hct MCV MCH MCHC RDW Plt Count MPV Neut % (Auto) Lymph % (Auto) [place] % (Auto) Eos % (Auto) Baso % (Auto) Neut # Lymph # [place] # Eos # Baso # Differential Comment PT INR APTT Puncture Site pCO2 pO2 HCO3 ABG pH ABG Total CO2 ABG O2 Saturation ABG Base Excess ABG Hemoglobin ABG Carboxyhemoglobin POC ABG HHb (Measured) ABG Methemoglobin Stan Test ABG Potassium VBG pH VBG pCO2 VBG HCO3 VBG O2 Sat (Calc) VBG Base Excess A-a O2 Difference Respiratory Index Hgb O2 Saturation Glucose Lactate Mechanical Rate FiO2 Tidal Volume PEEP Crit Value Called To Crit Value Called By Crit Value Read Back Blood Gas Notified Time Sodium Potassium Chloride Carbon Dioxide Anion Gap BUN Creatinine Est GFR ( Amer) Est GFR (Non-Af Amer) POC Glucose (mg/dL) 28 L* 156 H 101 Random Glucose Serum Osmolality Lactic Acid Calcium Phosphorus Magnesium Arterial Blood Potassium Hep Bs Antigen Hep Bs Antibody Hep B Core IgM Ab Hepatitis C Antibody Blood Type Antibody Screen - EKG Data EKG Interpreted by: Myself Assessment & Plan (1) Septic shock Assessment and Plan: on multiple pressors. The patient has a dismal prognosis. Mean arterial pressure is not able to be manitained due to severe septic shock. Supportive measures. Status: Acute (2) CAD (coronary artery disease) Assessment and Plan: s/p CABG. off antiplatellet therapy due to thrombocytopenia Status: Acute (3) Renal failure Assessment and Plan: patient is hypotensive during dialysis. recommend stopping dialysis now. Status: Acute
[2016-12-31] MEDS ORDERED: Meropenem 500 MG in Sodium Chloride 0.9% 100 ML IVPB SCH (15:00)
[2016-12-31 15:16] LABS: ABG MECHANICAL RATE 14; ARTERIAL BLOOD HGB O2 SAT 12.4 % (95.0-98.0); ATERIAL BLOOD GAS PEEP 5; DRAW SITE LF; HHB 85.4 % (0.0-5.0); METHEMOGLOBIN 1.2 % (0.0-3.0)
[2016-12-31] MEDS ORDERED: Sodium Bicarbonate (8.4%) 50 Meq Syringe IVP STA ×2 (15:16→15:17)
[2016-12-31] MEDS: Sodium Bicarbonate 8.4% 150 MEQ in Dextrose 5% In Water 850 ML IV SCH ×2 (16:13→16:46)
[2016-12-31] MEDS: SODIUM CHLORIDE 0.9% IV PRN ×2 (17:00→19:00)
[2016-12-31] MEDS: EPINEPHRINE IV PRN ×2 (17:00→19:00)
[2016-12-31] MEDS ORDERED: EPINEPHrine 1 mg/ml (1:1000) Inj IV ONE ×2 (17:35→18:27)
[2016-12-31] MEDS ORDERED: Sodium Bicarbonate (8.4%) 50 Meq Syringe IVP ONE (17:53)
[2016-12-31 20:01] VITALS: TEMP 97.8
[2016-12-31 20:39] VITALS: BP 67/44; PULSE 38; RESP 12; O2SAT 76
--- NOTE | 2016-12-31 21:22 | CP.PCM.PRO ---
Pronouncement of Note - Clinical Findings Physical Exam: No Response Verbal/Painful Stimuli, Absent Peripheral Pulses{ Carotid & Femoral}, Absent Heart & Breath Sounds, No Pupillary Light Reflex, Pupils Fixed & Dilated, Absence of Vital Signs - Pronouncement Time Time of Pronouncement of : 20:34 - Notifications Pronouncement Notifications: Family Notified Operator Receptionist Notified: No - [place] [id number]
--- NOTE | 2017-01-02 07:40 | CON ---
A 56-year-old female patient of [facility], admitted to [facility] with a chief complaint of lethargy and fever. The patient was admitted from [facility] with a chief complaint of sepsis. According to the history, the patient became lethargic, confused and short of breath, suffe red from the low blood pressure and was sent to the Emergency Room. The patient was in septic shock requiring intubation, mechanical ventilation and started on pressors. An ID consultation requested f or antibiotic management as the patient given stat doses of antibiotics in the Emergency Room. The p atient required intubation and mechanical ventilation. PAST MEDICAL HISTORY: Includes hypertension, diabetes, coronary artery disease status post CABG, per ipheral vascular disease, end-stage renal disease on dialysis. According to the history, the patient had open heart surgery, CABG at [facility] in August 2016. According to the histo ry, the patient required hemodialysis and apparently developed severe anasarca with ulceration at the site of the harvest vein that was harvested from the legs. She developed infection at that site acc ording to the history and required several procedures including debridement and wound VAC treatments for infected lower extremities. The patient was eventually stabilized and transferred to [facility]; however, the patient continued to suffer from leg ulcerations and has been on wound VAC ever since. No cultures are available at this time. PAST MEDICAL HISTORY: As mentioned: Hypertension, coronary artery disease, diabetes, peripheral vas cular disease, COPD, atherosclerotic heart disease. ALLERGIES: None. MEDICATIONS: Include: , vancomycin, meropenem, micafungin, insulin. SOCIAL HISTORY: Does not drink, smoke, or use intravenous drugs. FAMILY HISTORY: Positive for hypertension, diabetes. REVIEW OF SYSTEMS: Unobtainable. The patient is intubated on mechanical ventilator. No history of seizures. Positive shortness of breath. No history of abdominal pain, nausea, vomiting or diarrhea at this time. No loss of consciousness. No recent travel. No pets. PHYSICAL EXAMINATION: GENERAL: Reveals a chronically ill 56-year-old female, appears to be older than her stated age. She is lethargic, intubated, on a mechanical ventilator. VITAL SIGNS: Her T-max is 99, blood pressure 100/70, heart rate 122, irregular, respiratory rate is 16. HEENT: Normocephalic, atraumatic. Eyes: Pupils reactive. Sclerae are nonicteric. Extraocular mot ions are not intact and pupils are sluggish. The patient is intubated orally. NECK: Decreased range of motion all directions. No JVD, no thyromegaly. CHEST: Symmetrical expansion, Bilateral air entry. Bilateral rhonchi, rales at bases. HEART: S1, S2, rapid regular. Midline sternotomy scar. CHEST: Symmetrical. LUNGS: Bilateral rhonchi, rales at bases. HEART: S1, S2, rapid and regular. ABDOMEN: Obese, soft, distended. Bowel sounds diminished. No rebound, no guarding. RECTAL: Deferred. EXTREMITIES: Reveal osteoarthritic changes. Peripheral pulses diminished, 3+ edema of the lower ext remities with chronic ulcers both right and left leg with wound VAC in place. NEUROLOGIC: The patient is comatose, not moving upper and lower extremities. LABORATORY DATA: Reviewed. BUN and creatinine elevated with a creatinine of 9. Blood cultures, uri ne cultures, sputum culture is pending. Chest x-ray: Bilateral congestion, cardiomegaly. IMPRESSION: Septic shock with respiratory failure, multiorgan failure in a 56-year-old female from group home w ith infected ulcers of the lower extremities, suffering from diabetes, peripheral vascular disease. Possibility of underlying osteomyelitis cannot be ruled out. Possibility of underlying gangrene allan ot be ruled out at this time. PLAN: The patient may eventually require amputation. Currently is hypotensive and septic requiring pressors. We will need careful close monitoring and observation, IV antibiotic therapy including ant ifungal therapy, as well as coverage for MRSA and multidrug resistant negatives. Cultures are pendin g. Pressors, vent support and nutritional support have been initiated. The prognosis appears to be very poor. We will follow along with you and add further recommendations. Thank you very much for allowing me to participate in the care of the patient. Guillermo Martinez MD cc: [id number] TT: 01/01/2017 11:13:06 an
--- NOTE | 2017-01-02 08:30 | CARD ---
APPROVED REPORT EKG Measurement Heart [id number] <Conclusion> Sinus rhythm with sinus arrhythmia with 1st degree AV block Incomplete right bundle branch block Abnormal ECG
--- NOTE | 2017-02-03 08:16 | DS ---
The patient admitted with chief complaint ____ weakness, fatigue, tiredness. The patient came to the hospital and advised admission. The patient ____ weak, short of breath. The patient had a wound in the leg. The patient got IV antibiotic, supportive care. The patient ____ . The patient discharge d. Rik Nunes MD cc: [phone] TT: 02/01/2017 14:58:37 rn
--- NOTE | 2017-02-03 08:23 | HP ---
The patient chief complaint weakness, fatigue, tiredness, swelling of extremities, hypotension. The patient has congestive heart failure status post bypass. The patient has wound on the leg which has failed to respond to treatment. PHYSICAL EXAMINATION: GENERAL: The patient is awake but lethargic. VITAL SIGNS: Temperature 98, pulse is 90, HEENT: Within normal limits. NECK: Supple. CHEST: Symmetric air entry. HEART: Regular. ABDOMEN: Soft. EXTREMITIES: ____ swelling of extremity. The patient suffers from congestive heart failure, sepsis. The patient bedrest, supportive care, IV antibiotic. Rik Nunes MD cc: [phone] TT: 02/01/2017 08:28:35 jn 02/03/2017 07:22:39
== END 2017-01-01 00:30 | DRG 584 ==
LOC: C.ER 16:21 → C.9I 17:10
PROVIDERS: ADMIT Internal Medicine Pulmonary Disease; ATTEND Internal Medicine Pulmonary Disease
PROC: 5A1945Z Respiratory Ventilation, 24-96 Consecutive Hours (ICD-10-PCS; principal; 2016-12-30)
PROC: 0BH17EZ Insertion of Endotracheal Airway into Trachea, Via Natural or Artificial Opening (ICD-10-PCS; 2016-12-30)
PROC: 05HM33Z Insertion of Infusion Device into Right Internal Jugular Vein, Percutaneous Approach (ICD-10-PCS; 2016-12-30)
PROC: 5A1D00Z (ICD-10-PCS; 2016-12-31)
DX: A41.9 Sepsis, unspecified organism (principal); N17.9 Acute kidney failure, unspecified; J96.00 Acute respiratory failure, unspecified whether with hypoxia or hypercapnia; R65.21 Severe sepsis with septic shock; I13.2 Hypertensive heart and chronic kidney disease with heart failure and with stage 5 chronic kidney disease, or end stage renal disease; E87.2 Acidosis; I95.3 Hypotension of hemodialysis; I82.409 Acute embolism and thrombosis of unspecified deep veins of unspecified lower extremity; N18.6 End stage renal disease; E87.5 Hyperkalemia; J44.9 Chronic obstructive pulmonary disease, unspecified; I50.9 Heart failure, unspecified; B19.20 Unspecified viral hepatitis C without hepatic coma; T81.89XA Other complications of procedures, not elsewhere classified, initial encounter; E11.649 Type 2 diabetes mellitus with hypoglycemia without coma; E11.22 Type 2 diabetes mellitus with diabetic chronic kidney disease; G20 Parkinson's disease; R65.20 Severe sepsis without septic shock; F41.9 Anxiety disorder, unspecified; E78.5 Hyperlipidemia, unspecified; G47.30 Sleep apnea, unspecified; Z95.1 Presence of aortocoronary bypass graft; R53.83 Other fatigue; Z99.2 Dependence on renal dialysis; Y83.2 Surgical operation with anastomosis, bypass or graft as the cause of abnormal reaction of the patient, or of later complication, without mention of misadventure at the time of the procedure; I25.5 Ischemic cardiomyopathy; Z79.4 Long term (current) use of insulin